=== PATIENT | female | born 1995 | race Caucasian/White ===

== ENCOUNTER 2022-12-16 13:22 | Emergency (ER) | payer OTHER, SELFPAY ==
[2022-12-16 13:36] VITALS: BP 122/73; PULSE 66; RESP 16; TEMP 36.6; O2SAT 100
--- NOTE | 2022-12-16 13:47 | ED.FEMALEGU ---
HPI - Female Genitourinary General Chief complaint: Urogenital-Female Stated complaint: uti symptoms Time Seen by Provider: 12/16/22 13:47 Source: patient Mode of arrival: ambulatory Limitations: no limitations History of Present Illness HPI Narrative: 27-year-old female presents with complaint of urinary frequency, dysuria for 2-3 days. Afebrile. Denies hematuria. Denies history of frequent UTIs. No concern for STI. All systems reviewed and negative except as noted above. Related Data Allergies Allergy/AdvReac Type Severity Reaction Status Date / Time No Known Allergies Allergy Verified 12/16/22 13:41 Review of Systems Review of Systems: CONSTITUTIONAL: Denies fever, chills, or sweats. EYES: Denies visual changes, redness, or discharge. ENT: Denies rhinorrhea, congestion, sore throat, or otalgia. CARDIOVASCULAR: Denies chest pain, palpitations, or edema. RESPIRATORY: Denies cough or dyspnea. GASTROINTESTINAL: Denies abdominal pain, nausea, vomiting, or diarrhea. GENITOURINARY: Reports dysuria frequency. Denies hematuria. SKIN: Denies rash or itching. MUSCULOSKELETAL: Denies back pain, joint pain, or myalgia. NEUROLOGIC: Denies headache, numbness, or weakness. PSYCHIATRIC: Denies anxiety or depression. All other systems reviewed are negative, except as documented in HPI. PMFSH Comments At time of signature, agree with nursing past medical, surgical, social and family history. There is no relevant family history pertinent to the presenting complaint. Exam Narrative: GENERAL: This is a well-nourished, well-developed patient, in no apparent distress. HEAD: normocephalic, atraumatic. EYES: PERRL. Sclera clear/white. Vision is grossly intact. EARS: External ears normal NOSE: External nose normal NECK: Neck supple, non-tender without lymphadenopathy, masses or thyromegaly. CARDIOVASCULAR: Regular rate and rhythm without murmurs, gallops, or rubs. RESPIRATORY: Clear to auscultation. Breath sounds equal bilaterally. No wheezes, rales, or rhonchi. SKIN: warm, Dry, intact with no suspicious lesions or rash, good texture and turgor. NEURO: awake, alert, and oriented to person, place and time. There were no obvious focal neurologic abnormalities. EXTREMITIES: No joint tenderness, effusion, or edema noted. Course Course Level of Care: Express Care Visit Vital Signs Vital signs: Vital Signs Temperature 36.6 C 12/16/22 13:36 Pulse Rate 66 12/16/22 13:36 Respiratory Rate 16 12/16/22 13:36 Blood Pressure 122/73 12/16/22 13:36 Pulse Oximetry 100 12/16/22 13:36 Oxygen Delivery Room Air 12/16/22 13:36 Temperature 36.6 C 12/16/22 13:36 Pulse Rate 66 12/16/22 13:36 Respiratory Rate 16 12/16/22 13:36 Blood Pressure 122/73 12/16/22 13:36 Pulse Oximetry 100 12/16/22 13:36 Oxygen Delivery Room Air 12/16/22 13:36 reviewed MDM - Female Genitourinary MDM Narrative Medical decision making narrative: Patient is aware of diagnosis, understands and agrees to treatment plan. Anticipatory guidance given. Patient agrees to follow-up as directed and is aware of reasons to seek care at the emergency department. Portions of this record may have been created with voice recognition software Differential Diagnosis Differential diagnosis: Likely urinary tract infection Lab Data Labs: Urine Glucose Negative Reference Range: Negative Urine Bilirubin Negative Reference Range: Negative Urine Ketone Negative Reference Range: Negative Urine Specific [place] 1.020 Reference Range:1.001-1.035 Urine Blood Trace Reference Ra
== END 2022-12-16 13:57 | disposition home or self-care (01) ==
PROVIDERS: Emergency Provider Nurse Practitioner Family
DX: N39.0 Urinary tract infection, site not specified (principal)
CPT/HCPCS: 81003; 87086; 99203; G0463

== ENCOUNTER 2023-03-13 08:18 | Emergency (ER) | payer OTHER, SELFPAY ==
[2023-03-13 08:27] VITALS: BP 117/62; PULSE 84; RESP 18; TEMP 36.4; O2SAT 99
--- NOTE | 2023-03-13 09:06 | ED.FEMALEGU ---
HPI - Female Genitourinary General Chief complaint: Urogenital-Female Stated complaint: Female Urogenital Source: patient Mode of arrival: ambulatory Limitations: no limitations History of Present Illness HPI Narrative: Old female presents to [facility] with complaints of urinary urgency, burning and frequency since yesterday. Patient reports that she last had a urinary tract infection in December and was treated here with Bactrim. Patient denies vaginal discharge, vaginal bleeding, concern for STDs, fever, body aches, chills, abdominal pain, back pain, nausea, vomiting or diarrhea. Patient has not tried taking any srav-xvb-bbmxcnb medications for her symptoms. MD elicited complaint: dysuria and UTI Onset (ago): day(s) (1) Vaginal discharge: none Vaginal bleeding: none Urinary symptoms: Dysuria, Urgency and Frequency Exacerbating factors: none Relieving factors: none Patient : No Related Data Allergies Allergy/AdvReac Type Severity Reaction Status Date / Time No Known Allergies Allergy Verified 12/16/22 13:41 Review of Systems Constitutional: Constitutional: Denies chills and Denies fatigue ENT: Denies vertigo and Denies dizziness Cardiovascular: Cardiovascular: Denies chest pain Respiratory: Respiratory: Denies cough, Denies dyspnea and Denies wheezing Gastrointestinal: Gastrointestinal: Denies diarrhea, Denies nausea and Denies vomiting Genitourinary: Genitourinary: Denies hematuria, Reports nocturia, Denies genital lesions and Reports dysuria Integumentary/Breasts: Skin/Breast: Denies rash Neurologic: Denies dizziness, Denies syncope and Denies headache(s) PMFSH Comments At time of signature, I agree with nursing past medical, surgical, social and family history. There is no relevant family history pertinent to the presenting complaint. Exam Const: General: healthy appearing and no acute distress Nutritional Appearance: well nourished Orientation/consciousness: patient oriented x3 Limitations: no limitations HENMT: Head: normal to inspection Eyes: Conjunctivae: conjunctivae normal Neck: Neck: normal visual inspection Resp: Effort & Inspection: normal respiratory effort and not labored Auscultation: clear to auscultation bilaterally, no crackles, no rales, no rhonchi and no wheezes Cardio: Rate: regular rate Rhythm: regular rhythm Heart sounds: no murmurs GI: Inspection: non-distended GI Palp: Yes Soft to palpation, No Tenderness to palpation present (GI), No Guarding due to palpation present (GI), No Rigid due to palpation and No Hernia present : General: Yes bladder normal to palpation and Yes no CVA tenderness Back/Spine/Pelvis: Back: no CVA tenderness Skin: General skin exam: normal color Rashes: no rashes Wounds: no wounds Neuro: Speech: normal speech Gait exam (Neuro): Normal gait present Psych: Affect: normal affect Attitude: cooperative Course Course Level of Care: Express Care Visit Vital Signs Vital signs: Vital Signs Temperature 36.4 C L 03/13/23 08:27 Pulse Rate 84 03/13/23 08:27 Respiratory Rate 18 03/13/23 08:27 Blood Pressure 117/62 03/13/23 08:27 Pulse Oximetry 99 03/13/23 08:27 Oxygen Delivery Room Air 03/13/23 08:27 Temperature 36.4 C L 03/13/23 08:27 Pulse Rate 84 03/13/23 08:27 Respiratory Rate 18 03/13/23 08:27 Blood Pressure 117/62 03/13/23 08:27 Pulse Oximetry 99 03/13/23 08:27 Oxygen Delivery Room Air 03/13/23 08:27 MDM - Female Genitourinary MDM Narrative Medical decision making narrative: Urinalysis results discussed with patient. Urine culture obtained and sent to lab. Patient understands that we will call her if antibiotic changes needed. Patient agrees to follow-up with primary care provider if her symptoms do not improve and to proceed to the emergency room if symptoms worsen Differential Diagnosis Differential diagnosis: Likely bacterial vaginosis and cervicitis Critical Care Time
== END 2023-03-13 09:14 | disposition home or self-care (01) ==
PROVIDERS: Emergency Provider Nurse Practitioner Family
DX: N30.00 Acute cystitis without hematuria (principal)
CPT/HCPCS: 81003; 87077; 87086; 87186; 99213; G0463

== ENCOUNTER 2023-08-08 08:30 | Emergency (ER) | payer OTHER, SELFPAY ==
[2023-08-08 09:03] VITALS: BP 120/63; PULSE 88; RESP 18; TEMP 36.1; O2SAT 98
--- NOTE | 2023-08-08 09:14 | ED.URI ---
HPI - URI/Sore Throat General Chief Complaint: Upper Respiratory Infection Stated Complaint: sorethroat,congestion Time Seen by Provider: 08/08/23 09:14 Source: patient, RN notes reviewed and old records reviewed Mode of arrival: ambulatory Limitations: no limitations History of Present Illness HPI Narrative: 28-year-old female presents to the [facility] with complaints of congestion and a sore throat since Monday, 4 days Has taken Mucinex Denies fevers, abdominal pain, chest pain, shortness of. Treatments prior to arrival: cold medicine (Mucinex) Related Data Home Medications Medication Instructions Recorded Confirmed ergocalciferol (vitamin D2) 1,250 1,250 mcg PO WEEKLY 08/08/23 08/08/23 mcg (50,000 unit) capsule letrozole 2.5 mg tablet 2.5 mg PO PRN PRN fertility 08/08/23 08/08/23 levothyroxine 50 mcg tablet 50 mcg PO DAILY 08/08/23 08/08/23 Allergies Allergy/AdvReac Type Severity Reaction Status Date / Time No Known Allergies Allergy Verified 08/08/23 09:01 Review of Systems Review of Systems: All systems reviewed & are unremarkable except as noted in HPI and below Constitutional: Constitutional: Reports no additional constitutional complaints Eyes: Eyes: Reports no additional eye complaints ENT: Reports as per HPI Cardiovascular: Cardiovascular: Reports no additional cardiovascular complaints, Denies chest pain and Denies dyspnea Respiratory: Respiratory: Reports no additional respiratory complaints, Denies chest congestion, Denies cough and Denies dyspnea Gastrointestinal: Gastrointestinal: Reports no additional gastrointestinal complaints, Denies abdominal pain, Denies nausea and Denies vomiting Musculoskeletal: Musculoskeletal: Reports no additional musculoskeletal complaints Integumentary/Breasts: Skin/Breast: Reports system reviewed and no additional complaints, except as docu Neurologic: Reports system reviewed and no additional complaints, except as documented Psychiatric: Psychiatric: Reports no additional psychiatric complaints Allergic/Immunologic: Allergic/Immunologic: Reports no additional allergic/immunologic complaints PMFSH Past Medical History Medical History Ganglion cyst of dorsum of left wrist Social History Social History Smoking status: Never smoker Alcohol intake: current Alcohol use details: occasionally Substance use: never Comments At the time of my signature, I reviewed and agree with the nursing past medical, surgical, social, and family history. There is no relevant family history pertinent to the patient complaint. Exam Const: General: cooperative, healthy appearing, comfortable, no acute distress, well developed, alert and well nourished Nutritional Appearance: well nourished Orientation/consciousness: patient oriented x3 Limitations: no limitations HENMT: Head: normal to inspection Ears: hearing grossly normal bilaterally, external ears normal, TM's normal bilaterally, EAC's normal, mastoids normal and no periauricular adenopathy Face/Nose/Sinus: Normal external nose present, Normal nares present, Normal nasal mucous membranes and turbinates present, normal facial exam and face symmetric Face and sinus: normal facial exam and face symmetric Mouth: Yes Normal oral and palatal mucosa present, Yes lip normal and Yes moist mucous membranes Throat: uvula midline, abnormal tonsil bilateral erythema; no exudates and no hypertrophy, posterior oropharynx abnormal erythema; no cobblstoning, no edema, no exudates, no lacerations and no foreign body, postnasal drainage and no uvular edema Eyes: General: appearance normal, both eyes and all related structures Alignment and Position: alignment normal Periorbital: periorbital findings normal Pupils: Equal, round and reactive pupils present EOM: EOMs intact bilaterally Neck: Neck: normal visual inspect
== END 2023-08-08 09:29 | disposition home or self-care (01) ==
PROVIDERS: Emergency Provider Nurse Practitioner
DX: J06.9 Acute upper respiratory infection, unspecified (principal); Z79.899 Other long term (current) drug therapy; Z20.822 Contact with and (suspected) exposure to COVID-19
CPT/HCPCS: 87081; 87426; 87804; 87880; 99213; C9803; G0463

== ENCOUNTER 2023-11-07 11:35 | Outpatient (CLI) | payer OTHER, SELFPAY ==
--- NOTE | ~2023-11-07 | XR_ITS ---
EXAMINATION: XR hysterosalpingogram DATE: 11/07/2023 12:33 INDICATION: Infertility. TECHNIQUE: Fluoroscopy was performed by the radiologist during contrast infusion into the endometrial cavity of the uterus by the primary physician. Fluoroscopy exposure time was 0.3 minutes. The total number of images was 5. FINDINGS: The intrauterine cavity is normal in morphology. The fallopian tubes are normal. There is n ormal free intraperitoneal spillage of contrast on either side. IMPRESSION: 1. Normal hysterosalpingogram. Reviewed, dictated and finalized at location A.
--- NOTE | 2023-11-07 12:36 | W.PM.PROC2 ---
Procedure Note - Detailed Date of Procedure 11/07/23 Pre-op Diagnosis INFERTILITY Post-op Diagnosis Same Procedure Performed Hysterosalpingogram Surgeon Penelope Mathur MD Anesthesia None Indications unexplained infertility Findings normal hysterosalpingogram Description of Procedure the patient was placed on the fluoroscopy table. A speculum was placed in the vagina. Cervix was grasped with a tenaculum. The catheter was placed the uterine cavity and the bulb was inflated. The speculum was removed with the angiocath still placed in the intrauterine cavity. Dye was then removed. The catheter. Fluoroscopic images obtained this process. Patient experienced some moderate to severe discomfort. The balloon of the catheter was deflated and the catheter was removed while the images were being obtained. The procedure was terminated. Patient tolerated the procedure well. There were no complications. Estimated Blood Loss 0 Complications No immediate complications Condition Stable Disposition Other
== END 2023-11-07 11:36 | disposition home or self-care (01) ==
LOC: ANHIMG 11:36
PROVIDERS: Visit Provider Advanced Practice Midwife
DX: Z31.9 Encounter for procreative management, unspecified (principal)
CPT/HCPCS: 58340; 74740; Q9966

== ENCOUNTER 2023-11-28 09:02 | Emergency (ER) | payer OTHER, SELFPAY ==
[2023-11-28 09:25] VITALS: BP 88/47; PULSE 97; RESP 16; TEMP 36.3; O2SAT 100
--- NOTE | 2023-11-28 09:44 | ED.GENADULT ---
HPI - General Adult General Chief complaint: Upper Respiratory Infection Stated complaint: sorethroat,bilateral ear pain Source: patient Mode of arrival: ambulatory Limitations: no limitations History of Present Illness HPI narrative: Patient presents for evaluation of sick symptoms for last 3 days. Symptoms include hot flashes, chills, right sided ear discomfort, postnasal drainage, sore throat, cough, nausea. No objective fever, vomiting or diarrhea. She was recently on a cruise and states a woman on her flight was coughing. She is not aware of any other specific sick contacts. She has tried some OTC cough medication for her symptoms. Related Data Home Medications Medication Instructions Recorded Confirmed ergocalciferol (vitamin D2) 1,250 1,250 mcg PO WEEKLY 08/08/23 11/28/23 mcg (50,000 unit) capsule letrozole 2.5 mg tablet 2.5 mg PO PRN PRN fertility 08/08/23 11/28/23 levothyroxine 50 mcg tablet 50 mcg PO DAILY 08/08/23 11/28/23 chorionic gonadotropin, human 10,000 unit IM MONTHLY 11/28/23 11/28/23 10,000 unit IM powder for solution (Pregnyl) Allergies Allergy/AdvReac Type Severity Reaction Status Date / Time No Known Allergies Allergy Verified 11/28/23 09:09 Review of Systems Review of Systems: CONSTITUTIONAL: Reports hot flashes and chills. Denies objective fever EYES: Denies visual changes, redness, or discharge. ENT: Reports post-nasal drainage, sore throat and right sided otalgia CARDIOVASCULAR: Denies chest pain, palpitations, or edema. RESPIRATORY: Reports cough. Denies SOB. GASTROINTESTINAL: Reports nausea. Denies abdominal pain, vomiting, or diarrhea. GENITOURINARY: Denies dysuria or hematuria. SKIN: Denies rash or itching. MUSCULOSKELETAL: Denies back pain, joint pain, or myalgia. NEUROLOGIC: Denies headache, numbness, dizziness, or weakness. PSYCHIATRIC: Denies anxiety or depression. [facility] Past Medical History Medical History Ganglion cyst of dorsum of left wrist Surgical History Surgical History History of removal of cyst Family History Family History Mother Family history non-contributory Social History Social History Smoking status: Never smoker Alcohol intake: current Alcohol use details: occasionally Substance use: never Living arrangements: with family Gender identity (if verbalized by the patient): Female Exam Narrative: GENERAL: Well-appearing, well-nourished, and in no acute distress. HEAD: Normocephalic, atraumatic. EYES: PERRLA and EOMI. ENT: Nares clear, no rhinorrhea or epistaxis. Mucous membranes moist. Oropharynx without tonsillar hypertrophy exudate or other lesions. Bilateral TMs pearly winn nonbulging NECK: Supple. No adenopathy or masses. No carotid bruits or JVD CHEST: Clear to auscultation. No respiratory distress. No wheezes rales or rhonchi HEART: Regular rate and rhythm. No murmur heard. Normal peripheral pulses. ABDOMEN: Soft, nontender, nondistended, normal active bowel sounds. EXTREMITIES: Normal range of motion. No edema. SKIN: Warm, dry, no rash. NEURO: No focal deficits. Alert and oriented x3. PSYCH: Normal mood and affect. Course Course Emergency Course: This is a 28-year-old female who presented for evaluation of sick symptoms. Strep and influenza negative. COVID positive. Ukdm-aen-rlpewdx agents for symptom management. Increase hydration. Follow up with primary provider. BP improved on reassessment. Go to the ER for worsening symptoms. Pt in agreement with plan of care. Level of Care: Express Care Visit Vital Signs Vital signs: Vital Signs Temperature 36.3 C L 11/28/23 09:25 Pulse Rate 97 11/28/23 09:25 Respiratory Rate 16 11/28/23 09:25 Bl
[2023-11-28 09:56] VITALS: BP 117/77
== END 2023-11-28 09:58 | disposition home or self-care (01) ==
PROVIDERS: Emergency Provider Nurse Practitioner
DX: U07.1 COVID-19 (principal)
CPT/HCPCS: 87081; 87426; 87804; 87880; 99213; G0463

== ENCOUNTER 2024-07-18 11:45 | Emergency (ER) | payer OTHER, SELFPAY ==
--- OUTSIDE RECORDS SUMMARY | 2024-07-18 11:48 | XMS_ITS ---
Author Organization 1 OF Eloy logan DPM [facility] Address [address] [place] [address] Care Team Providers Care Manager Fine Dining Name Role Phone UNKNOWN, UNKNOWN Primary Care Provider Unavailab Victorino Orozco Unavailable [phone] REASON FOR VISIT LT foot great toe ingrown toenail Encounters Encounter Location Date Provider Diagnosis 1 OF Eloy Cabral DPM [facility] [address] [place] [address] 02/21/2023 Victorino Sanders Plan Of Treatment No Information Progress Notes * Uzma KHANNADOB: [birth year] (29 yo F)Acc No.[id number]:02/21/2023 Progress Notes Patient:?Uzma KHANNA Provider:?Victorino Sanders DPM :1995???Age:27 Y???Sex:Female D ate:02/21/2023 Address:[address], [facility] Pcp:UNKNOWN UNKNOWN Subjective: * Chief Complaints: * ???1. LT foot great toe ingr own toenail. * Medical History:? Objective: * Vitals:? Assessment: Plan: * Treatment: * Images: * Electronic signature of Victorino Sanders DPM on 07/18/2024 at 11:48 AM PRODUCT DEVELOPER Sign off status: Pending * Provider:?Victorino Sanders DPM Date:?02/04 Generated for Printi ng/Faxing/eTransmitting on:?07/18/2024 11:48 AM PRODUCT DEVELOPER
--- OUTSIDE RECORDS SUMMARY | 2024-07-18 11:49 | XMS_ITS | Continuity of Care Document ---
Author Organization [facility] [address] Address [address] [place] [phone] Encounter [facility] CHERYLESIDNEYR [id number] Date(s): 06/20/22 - 06/20/22 [facility] [address] [phone] [place] Discharge Disposition: Home or Self Care Attending Physician: CARLOS Vaughn Katie Referring Physician: CARLOS Vaughn Katie Medications miSOPROStol 200 mcg oral tablet Start: 06/22/22 17:23:00 EST, 4 tab, vaginal, ONCE, Disp# 4 tab, Refills: 0, Pharmacy: [id number] Start Date: 06/22/22 Status: Ordered Motrin 800 mg oral tablet Start: 06/22/22 17:26:00 EST, 1 tab, PO, tid, Disp# 15 tab, Refills: 1, PRN: as needed for pain, Pharmacy: [id number] Start Date: 06/22/22 Status: Ordered Tylenol 500 mg oral tablet Start: 06/22/22 17:25:00 EST, 2 tab, PO, q8h, Disp# 24 tab, Refills: 1, PRN: as needed for pain, Pharmacy: [id number] Start Date: 06/22/22 Status: Ordered Zofran 8 mg oral tablet Start: 06/22/22 17:26:00 EST, 1 tab, PO, bid, Disp# 12 tab, PRN: as needed for nausea/vomiting, Pharmacy: [id number] Start Date: 06/22/22 Status: Ordered Results Radiology Reports * Exam Date Time Procedure Performing Provider Status 06/20/22 8:49 AM US OB Transvaginal Selma Purvis; Modified Notes: (US OB Transvaginal) Reason For Exam: follow up on viability US OB Transvaginal ADDENDUM BEGINS The above results were telephoned to Marciavern MALONE by our reading room staff at 936 this morning Workstation ID: [id number] ADDENDUM ENDS Final Dictated by:MD Edge Joachim J Dictated DT/TM:06/20/2022 9:42 Signed by:MD Edge Joachim J Signed (Electronic Signature):06/20/2022 9:42 a US OB Transvaginal EXAMINATION: US OB Transvaginal CLINICAL HISTORY: 26-year-old female for dating and viability. Follow-up. COMPARISON: Prior early file sonogram 06/03/2022 TECHNIQUE: Transvaginal pelvic sonography was performed using standard protocol. FINDINGS: LMP: 04/09/2022. Gestational age by LMP: 10 weeks 2 days. JAS by LMP: 01/14/2023. Gestational age based on first sonogram: 8 weeks 3 days +/- 5 days. JAS by first ultrasound: 01/27/2023. Uterus measures 8.2 x 5.9 x 6.4 cm and is retroverted in position. Intrauterine gestational sac is noted with pole identified with crown lump length of 3.1 mm suggesting menstrual age of 5 weeks and 6 days. No cardiac activity is noted and there is been no interval growth since previous study. Findings are consistent with intrauterine demise. The right and left ovaries are normal in size measuring 2.2 x 2.1 x 1.5 cm on the right for volume of 3.5 cc and 3.0 x 2.3 x 2.1 cm a left for volume of 7.9 cc. There is a probable left ovarian corpus luteum. No adnexal masses or cul-de-sac free fluid is observed. There is probable 6 mm subchorionic bleed along the margin of the gestational sac. I discussed the above findings of demise with Ms Khanna and her while they was in our department. IMPRESSION: 1. Intrauterine demise at 5 weeks and 6 days. Workstation ID: [id number] Final Dictated by:MD Edge Joachim J Dictated DT/TM:06/20/2022 9:12 Signed by:MD Edge Joachim J Signed (Electronic Signature):06/20/2022 9:11 a US transvaginal for * MD Edge Joachim J: VERIFY MD Edge Joachim J: VERIFY, COSIGN MD Edge Joachim J: COSIGN, MODIFY MD Edge Joachim J: MODIFY Event Display: Addendum Report Authored Date: ADDENDUM BEGINS The above results were telephoned to Marcia MALONE by our reading room staff at 936 this morning Workstation ID: [id number] ADDENDUM ENDS Final Dictated by:MD Edge Joachim J Dictated DT/TM:06/20/2022 9:42 Signed by:MD Edge Joachim J Signed (Electronic Signature):06/20/2022 9:42 a Note * MD Edge Joachim J: VERIFY, VERIFY MD Edge Joachim J: VERIFY Contributor_system, [id number]: PERFORM Event Display: Report Authored Date: EXAMINATION: US OB Transvaginal CLINICAL HISTORY: 26-year-old female for dating and viability. Follow-up. COMPARISON: Prior early file sonogram 06/03/2022 TECHNIQUE: Transvaginal pelvic sonography was performed using standard protocol. FINDINGS: LMP: 04/09/2022. Gestational age by LMP: 10 weeks 2 days. JAS by LMP: 01/14/2023. Gestational age based on first sonogram: 8 weeks 3 days +/- 5 days. JAS by first ultrasound: 01/27/2023. Uterus measures 8.2 x 5.9 x 6.4 cm and is retroverted in position. Intrauterine gestational sac is noted with pole identified with crown lump length of 3.1 mm suggesting menstrual age of 5 weeks and 6 days. No cardiac activity is noted and there is been no interval growth since previous study. Findings are consistent with intrauterine demise. The right and left ovaries are normal in size measuring 2.2 x 2.1 x 1.5 cm on the right for volume of 3.5 cc and 3.0 x 2.3 x 2.1 cm a left for volume of 7.9 cc. There is a probable left ovarian corpus luteum. No adnexal masses or cul-de-sac free fluid is observed. There is probable 6 mm subchorionic bleed along the margin of the gestational sac. I discussed the above findings of demise with Ms Khanna and her while they was in our department. IMPRESSION: 1. Intrauterine demise at 5 weeks and 6 days. Workstation ID: [id number] Final Dictated by:MD Edge Joachim J Dictated DT/TM:06/20/2022 9:12 Signed by:MD Edge Joachim J Signed (Electronic Signature):06/20/2022 9:11 a
--- OUTSIDE RECORDS SUMMARY | 2024-07-18 11:49 | XMS_ITS | Continuity of Care Document ---
Author Organization [facility] Address [address] [place] [address] Assessment Encounter Date Assessment Date Assessment LastModified by Organization Details LastModified Time 07/03/2024 07/03/2024 Patient is _34__weeks . Discussed plan. Not available 07/03/2024 10:12:00 Plan of Treatment Reminders Order Date Submit Date Provider Last Modified By Organization Details Last Modified Time Details Appointments None record ed. Lab None record ed. Referral None record ed. Procedures None record ed. Surgeries None record ed. Imaging None record ed. Medication Orders None record ed. Patient TargetsNo targets recorded. Patient InstructionsNo instructions recorded. Reason for Referral None Reported. Results Created Date Observation Date Name Description Value Unit Range Abnormal Flag Note LastModifiedBy Organization Detail LastModifiedTime 01/31/20 24 01/31/2024 US, obste tric, follo w-up No observ ation record ed. cammie Lindasy [address], [facility], [place], [address], 01/31/2024 12:59:11 02/01/20 24 02/01/2024 US, obste tric, follo w-up No observ ation record ed. [email or web address] [facility] [address] [place] [address] Krystyna Winslow [facility], [place], [address], 02/01/2024 16:12:06 02/01/20 24 02/01/2024 US, obste tric, follo w-up No observ ation record ed. [email or web address] Not Available 01/31 16:21:10 04/18/20 24 04/18/2024 US, obste tric, follo w-up No observ ation record ed. [facility] [address] [place], [address], 04/18/2024 13:46:37 04/18/20 24 04/18/2024 US, obste tric, follo w-up No observ ation record ed. [facility] [address] [place], [address], 04/18/2024 13:50:23 05/02/20 24 05/02/2024 US, obste tric, follo w-up No observ ation record ed. [facility] [address] [facility] [address], [place], [address], 05/02/2024 12:29:59 05/02/20 24 05/02/2024 US, obste tric, follo w-up No observ ation record ed. [email or web address] [facility] [address] [place], [address], 05/02/2024 15:11:09 05/16/20 24 05/16/2024 US, obste tric, follo w-up No observ ation record ed. [id number] [place], [address], 05/17/2024 14:19:03 05/16/20 24 05/16/2024 US, obste tric, follo w-up No observ ation record ed. [email or web address] [facility] [address], [address], 05/16/2024 14:58:04 05/31/20 24 05/31/2024 US, obste tric, follo w-up No observ ation record ed. [email or web address] [facility] [address] [facility] [address], [place], [address], 05/31/2024 13:32:19 05/31/2005/31/2024 US, obste tric, follo w-up No observ ation record ed. [email or web address] [facility] [address] [place], [address], 06/05/2024 12:01:28 Result Notes None recorded. Problems Name Problem SNOMED Code Status Onset Date Resolution Date Notes Provider Name and Address Organization Details Recorded Time 22441151 Active 2023 Julianna sanchez, [facility] 4 10:18:05 Artificia l inseminat ion Active done by SP Hiwot Hendrix CNM [address], [place], [address], [facility] 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 4 15:14:03 Amelie thyroidit is 12691323 Active on levothyro xine for infertilt y Hiwot Hendrix CNM [address], [place], [address], [facility] 4 15:14:03 Anemia 809378216 Active Mayra sanchez, [facility] 4 10:34:46 Problem Notes None recorded. Procedures Surgical History Date Name Laterality Status Provider Name and Address Organization Details Recorded Time 2023 intrauterine artificial insemination completed Julianna Fay [facility] 11/15/2023 09:25:10 2023 hysterosalpingography completed Julianna Fay [facility] 01/31/2024 10:15:23 2022 Date of Last Pap Smear completed Julianna Fay [facility] 06/28/2023 09:35:11 2009 procedure on wrist completed Julianna Fay [facility] 03/29/2023 16:11:52 Imaging Results None recorded. Procedure Notes None recorded. Medical Equipment None Reported. Allergies No known drug allergies Medications Name Sig Start Date Stop Date Status Note LastModified by Organization Details LastModified Time ibuprofen 800 mg tablet TAKE 1 TABLET BY MOUTH 3 TIMES A DAY NEEDED FOR PAIN 05/03 completed Not Available Not Available Not Available ondansetr on HCl 8 mg tablet 1 TAB BY MOUTH TWICE DAILY NEEDED FOR NAUSEA/V OMITING 05/03 completed Not Available Not Available Not Available phenazopy ridine 200 mg tablet TAKE 1 TABLET BY MOUTH THREE TIMES DAILY 06/28 completed Not Available Not Available Not Available Pregnyl 10,000 unit intramusc ular solution Inject 1 unit by intramus cular route. 01/04 completed /Late Entry Patient was given pregnyl injectio n 11/14/2023 in right hip lot [id number] Exp 06/25/20 24 Not Available Not Available Not Available sulfameth oxazole 800 mg-trimet hoprim 160 mg tablet TAKE 1 TABLET BY MOUTH TWICE DAILY FOR 7 DAYS 06/28 completed Not Available Not Available Not Available acetamino phen 500 mg tablet TAKE 2 TABLETS BY MOUTH EVERY 8 HOURS NEEDED FOR PAIN 05/03 completed Not Available Not Available Not Available levothyro xine 25 mcg tablet TAKE 1 TABLET BY MOUTH EVERY DAY 06/28 completed Not Available Not Available Not Available phenazopy ridine 100 mg tablet TAKE 1 TABLET BY MOUTH THREE TIMES DAILY NEEDED FOR PAIN 05/03 completed Not Available Not Available Not Available levothyro xine 50 mcg tablet TAKE 1 TABLET BY MOUTH EVERY DAY 04/24 completed Not Available Not Available Not Available cephalexi n 500 mg capsule 05/03 completed Not Available Not Available Not Available pantopraz ole 40 mg tablet,de layed release TAKE 1 TABLET BY MOUTH EVERY DAY active Not Available Not Available No t Available misoprost ol 200 mcg tablet 4 TAB VAGINAL ONCE 05/03 completed Not Available Not Available Not Available ergocalci ferol (vitamin D2) 1,250 mcg (50,000 unit) capsule TAKE 1 CAPSULE BY MOUTH EVERY WEEK 10/04 completed Not Available Not Available Not Available letrozole 2.5 mg tablet TAKE 3 TABLETS BY MOUTH EVERY DAY ON DAYS 3 THOUGH 7 OF CYCLE 01/04 completed Not Available Not Available Not Available methylpre dnisolone 4 mg tablets in a dose pack FOLLOW PACKAGE DIRECTIO NS 10/04 completed Not Available Not Available Not Available ondansetr on 4 mg disintegr ating tablet Place 1 tablet every 8 hours by translin gual route. active Not Available Not Available No t Available Vitamin D3 25 mcg (1,000 unit) capsule TAKE 1 TABLET IN THE MORNING AND 1 TABLET BEFORE BEDTIME 05/03 completed Not Available Not Available Not Available nitrofura ntoin monohydra te/macroc rystals 100 mg capsule TAKE 1 CAPSULE BY MOUTH EVERY DAY WITH INTERCOU RSE 10/04 completed Not Available Not Available Not Available Vitamin D 05/03 completed Not Available Not Available Not Available Slow Release Iron 140 mg (45 mg iron) tablet,ex tended release Take by oral route. active Not Available Not Available No t Available Vitals Date Recorded Body height Body mass index (BMI) Body weight Systolic blood pressure Diastolic blood pressure Provider Name and Address Organization Details Last Updated DateTime 07/03/2024 157.48 cm 38.2 kg/m2 27041.81 g 123 mm[Hg] 84 mm[Hg] Julianna Fay [facility] 10:10:55 Social History Question Answer Notes LastModified by Organizat ion Details LastModified Time Tobacco Smoking Status Never Smoker Suni sanchez, [facility] 06/28/2023 09:26:18 What Is Your Level Of Alcohol Consumption? None [email or web address] Information not available 03/27/2024 If You Are , What Was Your Level Of Alcohol Consumption Prior To ? Occasional [email or web address] Information not available 03/27/2024 Are You Blind Or Do You Have Difficulty Seeing? No Information n ot available 03/29/2023 What Is Your Level Of Caffeine Consumption? Moderate [email or web address] Information not available 02/28/2024 In The 14 Days Before Symptom Onset, Have You Had Close Contact With A Laboratory-confirm ed COVID-19 While That Case Was Ill? No [email or web address] Information n ot available 03/29/2023 In The 14 Days Before Symptom Onset, Have You Had Close Contact With A Person Who Is Under Investigation For COVID-19 While That Person Was Ill? No [email or web address] Information not available 03/29/2023 Have You Been To An Area Known To Be High Risk For COVID-19? No [email or web address] Information not available 03/29/2023 Are You Deaf Or Do You Have Serious Difficulty Hearing? No Information not available 03/29/2023 What Type Of Diet Are You Following? REGULAR [email or web address] Information n ot available 03/29/2023 What Is The Highest Grade Or Level Of School You Have Completed Or The Highest Degree You Have Received? 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 No Information not available 02/28/2024 Have You Ever Been Counseled For Unhealthy Alcohol Use? No [email or web address] Information not available 06/28/2023 Do You Use Protection During Sex? No [email or web address] Information not available 01/05/2024 Do You Use Your Seat Belt Or Car Seat Routinely? Yes [email or web address] Information not available 03/29/2023 Do You Have Smoke And Carbon Monoxide Detectors In Your Home? Yes Information not available 03/29/2023 Do You Feel Stressed (tense, Restless, Nervous, Or Anxious, Or Unable To Sleep At Night)? [id number] Information not available 03/29/2023 Do You Use Any Illicit Or Recreational Drugs? No [email or web address] Information not available 03/29/2023 Do You Use Sunscreen Routinely? Yes [email or web address] Information not available 03/29/2023 Has Tobacco Cessation Counseling Been Provided? No [email or web address] Information not available 06/28/2023 Have You Used IV Drugs? No [email or web address] Information not available 02/28/2024 Do You Or Have You Ever Used Any Other Forms Of Tobacco Or Nicotine? No [email or web address] Information not available 06/28/2023 Sex: Unknown Functional Status Question Answer Note LastModified by Organizat ion Details LastModified Time Do you have difficulty walking or climbing stairs? No [email or web address] Information not available 06/28/2023 Are you able to walk? YESWOREST [email or web address] Information not available 03/29/2023 Are you able to care for yourself? Yes Information not available 06/28/2023 Do you have difficulty dressing or bathing? No [email or web address] Information not available 06/28/2023 What is your exercise level? Occasional [email or web address] Information not available 03/29/2023 Mental Status None recorded. Family History Relationship Description Onset Age of this Age Resolved Age Notes LastModified by Organization Details LastModified Time Mother Asthma [email or web address] Not available 05/03/2023 11:35:16 Maternal Grandmother Diabetes mellitus [email or web address] Not available 05/03 11:35:16 Medical History Condition Response Allergies (Food, seasonal, environmental ) N Other N Breast Cancer N Drug/Latex Allergies/Reactions N Blood Transfusion N Dermatologic Disorders N Lung Disease N Defects or Inherited Disease N Breast Problem N Gestational Diabetes N Hematologic disorders N Anesthesia Complications N History of STI N Deep Vein Thrombosis N Polycystic ovary syndrome N Anxiety Disorder N Autoimmune disease N Arthritis N Infertility Y Polyps N Acid Reflux (GERD) N History of abnormal pap N Cancer N Stroke N Varicosities N Neurologic/Epilepsy N Endometriosis N High Cholesterol N Headaches N Fibromyalgia N Kidney Disease N Heart Problems N Kidney or Bladder Problems N Thyroid Problems Y GI Problems N Eating Disorder N Anemia N Art (IVF or FET) Y Psychiatric Illness N Ovarian Cancer N Diabetes N Pulmonary (TB, Asthma) N Hepatitis/Liver Disease N No Past Medical History N Eczema N Urinary Tract Infection N Abuse/Domestic Violence N Asthma N Trauma/Violence N Depression/ depression N Heart Disease N Pre-Eclampsia N Hypertension N Osteoporosis N Thrombophilias N Gynecological History Statement/Question Response Abnormal Pap N Date of Last Mammogram Date of LMP 11/02/2023 Was last menstrual period normal Y STIs/STDs N Duration of Flow (days) 4 Current Control Method Frequency of Cycle (Q days) 31 Sexually Active? Y Date of DEXA bone scan Age of first menstrual cycle 9 Date of Last Pap Smear 06/28/2023 Sexual Problems? N LMP Approximate Obstetrics History GPAL:G 2 P 0 0 1 0 Type Value Spontaneous 1 Living 0 Total 2 Past Encounters Encounter ID Performer Location Encounter Start Date Encounter Closed Date Diagnosis/Indication Diagnosis SNOMED-CT Code Diagnosis ICD10 Code [id number] Hiwot Hendrix [facility] [address],[place] [address] 06/05/2024 09:18:38 06/05/2024 09:48:56 Routine care 233808688 Z34.92 [id number] Hiwot Hendrix [facility] [address],[place] [address] 06/19/2024 09:40:08 06/19/2024 10:39:08 Gestation period, 32 weeks 1797268 Z3A.32 [id number] Hiwot Hendrix [facility] [address],[place] [address] 07/03/2024 09:57:40 07/03/2024 10:27:45 Gestation period, 34 weeks [id number] Z3A.34 Health Concerns Section Related Observation LastModified by Organization Detai ls LastModified Time None Recorded Concern Status LastModified by Organization Details LastModified Time None Recorded Payers Encounter Date Sequence Insurance Name Policy Number Policy Dale Covered Member ID Dale Member ID Guarantor Name 07/03/2024 1 [employer] - DOS PRIOR TO 2024 - [employer] - [employer] ( - PPO) Jin Watson [id number] Uzma Watson OBGyn Episode Ob Episode Information Episode Created Date Number of Fetuses Patient Bloodtype Patient rh Status Prepregnancy Weight lbs Domestic Partner Domestic Partner Phone Father Name Legend Maker Status 01/31/20 24 2 O Positive 186 Jin woodard OPEN Fetus Data First Name Last Name Admitted to NICU Weight (g) Sex Living Outcome Pediatric Complications Fetus ID Race Codes Race Delivery Type [id number] Problems Problem Notes Pt has f/u ultrasounds with Gabriela RICHARDSON on 02/22, 03/07, 03/20, 03/27. TTS BILL cox 05/31 , 06/14 & 06/27 NST 06/18, 06/21 & [email or web address] completed 1hr gtt failed, 3hr gtt passed. Problem Name Start Date End Date Resolution Snomed Code Not e Anemia 834091328 Amelie thyroiditis 04593096 on levothyroxine for infertilty Artificial insemination 19904317 done by SP Monochorionic diamniotic twin [id number] MFM on 01/31 Jas Calculation JAS Calculation Method Initial Jas Date Initial Exam Date Initial Exam Provider Initial Ultrasound Date Last Menstrual Period Date Ultra Sound Weeks Gestation Conception by IVF Embryo Age at Transfer Date of Transfer 08/08/1901/04/2001/04/2024 11/02/2023 9 Eighteen To Twenty Week Jas Update Ultra Sound Date Fundal Height At Umbil Quickening Date Ultra Sound Latest Weeks Gestation Final Jas Confirmed By Final Jas Confirmed Date Final Jas Date Ultra Sound Latest Days Gestation 01/31/20 24 12 [email or web address] 01/31/2024 08/08/19 25 6 Pre- Flowsheet Flowsheet Date 01/31/2024 Han Score Blood Edema Fundus Height Fundus Units Glucose Ketones Leukocytes Nitrite Labor Signs Protein Cervic Dilation Cervic Effacement Cervic Station none Type Weight in lbs Pre/Post Dialysis Refused Weight 186.823330561971 BP Diastolic BP Location Tested BP Systolic BP Type 77 126 Fetus Heart Rate Present Fetus Movement A No Comments Patient states that having s ome heartburn and nausea and vomiting. sees mfm tomorrow, will await ASA rec 81 or 162mg, zofran helping with nausea, reviewed rec, precautions, education, f/u here in 4 weeks Flowsheet Date 02/28/2024 Han Score Blood Edema Fundus Height Fundus Units Glucose Ketones Leukocytes Nitrite Labor Signs Protein Cervic Dilation Cervic Effacement Cervic Station none Type Weight in lbs Pre/Post Dialysis Refused Weight 191.250627349768 BP Diastolic BP Location Tested BP Systolic BP Type 77 123 Fetus Heart Rate Present Fetus Movement A No B No Comments Patient is having nausea, he artburn and vomiting. will rx protonix, US today, saw mfm both boys doing well! education and precautions Flowsheet Date 03/27/2024 Han Score Blood Edema Fundus Height Fundus Units Glucose Ketones Leukocytes Nitrite Labor Signs Protein Cervic Dilation Cervic Effacement Cervic Station none Type Weight in lbs Pre/Post Dialysis Refused 193.90112952744 BP Diastolic BP Location Tested BP Systolic BP Type 72 110 Fetus Heart Rate Present A 138 Present B 150 Present Fetus Movement A No Comments doing well +FM, discussed ta leave when she starts feeling poorly, sees mfm every 2 weeks currently. if needs would like to have it at [facility] because of proximity to NICU, would still like to co-manage care for now, f/u 4 weeks then 28 weeks GCT,. precautions and education, gerd resolved with protonix Flowsheet Date 04/24/2024 Han Score Blood Edema Fundus Height Fundus Units Glucose Ketones Leukocytes Nitrite Labor Signs Protein Cervic Dilation Cervic Effacement Cervic Station trace Type Weight in lbs Pre/Post Dialysis Refused 201.413017210629 BP Diastolic BP Location Tested BP Systolic BP Type 75 137 Fetus Heart Rate Present Fetus Movement A Yes B Yes Comments Patient states that is havin g some back pain, hip pain, swelling and nausea. ok for disability placard, ok for maternity belt, planning c/s at [facility] at 37 weeeks, plan 4 week GCT here, education and precautions. +FM x 2 Flowsheet Date 05/22/2024 Han Score Blood Edema Fundus Height Fundus Units Glucose Ketones Leukocytes Nitrite Labor Signs Protein Cervic Dilation Cervic Effacement Cervic Station none Type Weight in lbs Pre/Post Dialysis Refused 206.380210484580 BP Diastolic BP Location Tested BP Systolic BP Type 67 124 Fetus Heart Rate Present A 145 B 138 Present Fetus Movement A Yes B Yes Comments Patient is having pelvic clarissa n, discharge, nausea and vomiting. doing well 37 week c/s at [facility] scheduled 07/18 +FM x2 precautions and education discuss rsv at next visit f/u 2 weeks Flowsheet Date 06/05/2024 Han Score Blood Edema Fundus Height Fundus Units Glucose Ketones Leukocytes Nitrite Labor Signs Protein Cervic Dilation Cervic Effacement Cervic Station none Type Weight in lbs Pre/Post Dialysis Refused 206.162131406896 BP Diastolic BP Location Tested BP Systolic BP Type 97 140 88 138 Fetus Heart Rate Present A 147 B 156 Fetus Movement A Yes B Yes Comments doing well +FM, discussed c/ s vs vaginal, baby b breech, will discuss with [facility] education and precautions Flowsheet Date 06/19/2024 Han Score Blood Edema Fundus Height Fundus Units Glucose Ketones Leukocytes Nitrite Labor Signs Protein Cervic Dilation Cervic Effacement Cervic Station Type Weight in lbs Pre/Post Dialysis Refused Weight 210.091700865657 BP Diastolic BP Location Tested BP Systolic BP Type 80 128 Fetus Heart Rate Present A 146 B 150 Fetus Movement A Yes B Yes Comments Patient states that is havin g pressure and nausea. +FM NST yesterday at [facility] precautions and education f/u 2 weeks Flowsheet Date 07/03/2024 Han Score Blood Edema Fundus Height Fundus Units Glucose Ketones Leukocytes Nitrite Labor Signs Protein Cervic Dilation Cervic Effacement Cervic Station Type Weight in lbs Pre/Post Dialysis Refused Weight 209.914523935341 BP Diastolic BP Location Tested BP Systolic BP Type 84 123 Fetus Heart Rate Present Fetus Movement A Yes B Yes Comments Patient is having nausea and vomiting. Menstrual History Last Menstrual Date Menses Monthly On Bcp Conception Prior Menses Frequency Hcg Plus Date Menarche Onset Age 0311/02/2023 Genetic Screening And Infection History Question Response Note Mental Retardation/Autism false Patient's Age Will Be 35 Yea rs Or Older At Estimated Date of Delivery false Thalassemia (Macedonian, Syriac, Mediterranean, Or Background): MCV < 80 false Neural Tube Defect (Meningom yelocele, Spina Bifida, Or Anencephaly) false Congenital Heart Defect false Down Syndrome false Lincoln-Sachs (eg, Alevism, Cajun, Croatian-Finnish) f alse Jonny Disease false Sickle Cell Disease Or Trait () false Hemophilia Or Other Blood Disorders false Muscular Dystrophy false Cystic Fibrosis false [place]'s Chorea false Intellectual Disability/Autism false If Yes, Was Person Tested For Fragile X? false Other Inherited Genetic Or Chromosomal Disorder false Maternal Metabolic Disorder (eg, Type 1 Diabetes, PKU) false Patient Or Baby's Father Had A Child With Defects Not Listed Above false Recurrent Loss, Or A Stillbirth false Medications (including Suppl ements, Vitamins, Herbs, OTC Drugs), Illicit/Recreational Drugs, Alcohol false pnv , levothyroxine, zofran If Yes, Agent(s) And Strength/Dosage false Any Other Genetic History false Live With Someone With TB Or Exposed To TB false Patient Or Partner Has History Of Genital Herpes false Rash Or Viral Illness Since Last Menstrual Period false History Of STD, Gonorrhea, C hlamydia, HPV, Syphilis false Other Infection History false History of HIV false History of Hepatitis false Prior GBS-infected child false Hemoglobinopathy Or Carrier false Other Structural Defect false Recent Travel History Outside of Country false Delivery Information Delivery Date Delivery Type Labor Anesthesia Weeks Gestation Incision Type Labor Labor Length Hrs Delivered By Post Complications Tubal Sterilization Discharge Date Comments Discharge Information Feeding Method Contraceptive Method Maternal HG B and HCT Levels
--- OUTSIDE RECORDS SUMMARY | 2024-07-18 11:49 | XMS_ITS | Continuity of Care Document ---
Author Name [facility] Organization [facility] Care Team Providers Care Steam Trap Man Name Role Phone [facility] Unavailable Unavailable Medications Combined list of outpatient medications from Department of Defense and Veterans Affairs facilities.Medications provided include 1) outpatient medications from the last 15 months, and 2) patient-reported medications. Medication Details Route Status Patient Instructions Prescription Expires Prescription Number Last Dispense Date Ordering Provider Order Date Order Qty Source LETROZOLE (LETROZOLE) , 2.5 MG, TABLET, ORAL, [facility], 30 ea. BOTTLE Active [id number] 2023 15 Pharmac y Data Transac tion Service Facilit y LETROZOLE (LETROZOLE) , 2.5 MG, TABLET, ORAL, [facility], 30 ea. BOTTLE Active [id number] 3 2023 10 Pharmac y Data Transac tion Service Facilit y LETROZOLE (LETROZOLE) , 2.5 MG, TABLET, ORAL, BRECKENRIDG E, 30 ea. BOTTLE Cancele d [id number] : 2023 0 Pharmac y Data Transac tion Service Facilit y LETROZOLE (LETROZOLE) , 2.5 MG, TABLET, ORAL, BRECKENRIDG E, 30 ea. BOTTLE Active [id number] 4 2023 15 Pharmac y Data Transac tion Service Facilit y LETROZOLE (LETROZOLE) , 2.5 MG, TABLET, ORAL, BRECKENRIDG E, 30 ea. BOTTLE Active [id number] 4 2023 15 Pharmac y Data Transac tion Service Facilit y LEVOTHYROXI NE SODIUM (levothyrox ine sodium), 50 MCG, TABLET, ORAL, [facility], 1000 ea. BOTTLE Active [id number] 4 2023 90 Pharmac y Data Transac tion Service Facilit y LEVOTHYROXI NE SODIUM (levothyrox ine sodium), 50 MCG, TABLET, ORAL, [facility]ARM[facility], 1000 ea. BOTTLE Active [id number] 4 2023 90 Pharmac y Data Transac tion Service Facilit y LEVOTHYROXI NE SODIUM (levothyrox ine sodium), 50 MCG, TABLET, ORAL, [facility], 1000 ea. BOTTLE Active [id number] 4 2023 90 Pharmac y Data Transac tion Service Facilit y METHYLPREDN ISOLONE (methylpred nisolone), 4 MG, TAB DS PK, ORAL, [employer], 21 ea. DOSE-PACK Active [id number] 4 2023 21 Pharmac y Data Transac tion Service Facilit y NITROFURANT OIN MONO-MACRO (NITROFURAN TOIN MONOHYD/M-C RYST), 100 MG, CAPSULE, ORAL, [employer], 100 ea. BOTTLE Active [id number] 2023 30 Pharmac y Data Transac tion Service Facilit y ONDANSETRON ODT (ONDANSETRO N), 4 MG, TAB RAPDIS, ORAL, [employer] [facility], 30 ea. BLIST PACK Active [id number] 4 2023 60 Pharmac y Data Transac tion Service Facilit y ONDANSETRON ODT (ONDANSETRO N), 4 MG, TAB RAPDIS, ORAL, [employer], 30 ea. BLIST PACK Active [id number] 4 2023 30 Pharmac y Data Transac tion Service Facilit y PREGNYL (chorionic gonadotropi n, human), 24776 UNIT, VIAL, INTRAMUSC, [employer], 1 ea. VIAL Active [id number] 4 2023 1 Pharmac y Data Transac tion Service Facilit y PREGNYL (GONADOTROP IN,CHORIONI C,HUMAN), 19681 UNIT, VIAL, INTRAMUSC, [employer]., 1 ea. VIAL Cancele d [id number] : 2023 0 Pharmac y Data Transac tion Service Facilit y Social History Combined list of available smoking, tobacco, and other social history from Department of Defense and Veterans Affairs facilities. Social History Type Response Date Comment Sourc e This section is an empty social history section. DoD
--- OUTSIDE RECORDS SUMMARY | 2024-07-18 11:49 | XMS_ITS | Continuity of Care Document ---
Author Organization [facility] Address [address] [place] [address] Assessment Encounter Date Assessment Date Assessment LastModified by Organization Details LastModified Time 04/24/2024 04/24/2024 Patient is __25_weeks . Discussed plan. Not available 04/25/2024 06:54:59 Plan of Treatment Reminders Order Date Submit [...] Abnormal Flag Note LastModifiedBy Organization Detail LastModifiedTime 01/31/2001/31/2024 US, obste tric, follo w-up No observ ation record ed. cammie Lindsay [address], [facility], [place], [address], 01/31/2024 12:59:11 02/01/20 24 02/01/2024 US, obste tric, follo w-up No observ ation record ed. [email or web address] [facility] Genetic Counselor [address] [place] [address] Krystyna [facility], [place], [address], 02/01/2024 16:12:06 02/01/20 24 02/01/2024 US, obste tric, follo w-up No observ ation record ed. [email or web address] Not Available 01/31 16:21:10 04/18/20 24 04/18/2024 US, obste tric, follo w-up No observ ation record ed. [facility] [address] [place], [address], 04/18/2024 13:46:37 04/18/20 24 04/18/2024 US, obste tric, follo w-up No observ ation record ed. [facility] [address] [place], [address], 04/18/2024 13:50:23 05/02/20 24 05/02/2024 US, obste tric, follo w-up No observ ation record ed. [email or web address] [facility] [address] [facility] [address], [place], [address], 05/02/2024 12:29:59 05/02/20 24 05/02/2024 US, obste tric, follo w-up No observ ation record ed. [email or web address] [facility] [address] [place], [address], 05/02/2024 15:11:09 05/16/20 24 05/16/2024 US, obste tric, follo w-up No observ ation record ed. [email or web address] [place], [address], 05/17/2024 14:19:03 05/16/20 24 05/16/2024 US, obste tric, follo w-up No observ ation record ed. [email or web address] [facility] Genetic Counselor [address], [address], 05/16/2024 14:58:04 05/31/20 24 05/31/2024 US, obste tric, follo w-up No observ ation record ed. [email or web address] [facility] Genetic Counselor [address] [facility] [address], [place], [address], 05/31/2024 13:32:19 05/31/2005/31/2024 US, obste tric, follo w-up No observ ation record ed. [email or web address] [facility] [address] [place], [address], 06/05/2024 12:01:28 Result Notes None recorded. Problems Name Problem SNOMED Code Status Onset Date Resolution Date Notes Provider Name and Address Organization Details Recorded Time 09091537 Active 2023 Julianna sanchez, [facility] 4 10:18:05 Artificia l inseminat ion Active done by SP Hiwot Hendrix CNM [address], [place], [address], [facility] 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 4 15:14:03 Amelie thyroidit is 97495235 Active on levothyro xine for infertilt y Hiwot Hendrix CNM [address], [place], [address], [facility] 4 15:14:03 Anemia 725502536 Active Mayra sanchez, [facility] 4 10:34:46 Problem Notes None recorded. Procedures Surgical History Date Name Laterality Status Provider Name and Address Organization Details Recorded Time 2023 intrauterine artificial insemination completed Julianna Fay [facility] 11/15/2023 09:25:10 2023 hysterosalpingography completed Julianna Fay [facility] 01/31/2024 10:15:23 2022 Date of Last Pap Smear completed Julianna Fay [facility] 06/28/2023 09:35:11 2009 procedure on wrist completed Julianna Fay [facility] 03/29/2023 16:11:52 Imaging Results None recorded. [...] injectio n 11/14/2023 in right hip lot [id number] Exp 06/25/20 24 Not Available Not Available [...] and Address Organization Details Last Updated DateTime 04/24/2024 157.48 cm 36.8 kg/m2 33657.06 637 g 137 mm[Hg] 75 mm[Hg] Julianna Fay [facility] 17:30:02 Social History Question Answer Notes LastModified by Organizat ion Details LastModified Time Tobacco Smoking Status Never Smoker Suni sanchez, [facility] 06/28/2023 09:26:18 What Is Your Level Of Alcohol Consumption? None [email or web address] Information not available 03/27/2024 If You Are , What Was Your Level Of Alcohol Consumption Prior To ? Occasional [email or web address] Information not available 03/27/2024 Are You Blind Or Do You Have Difficulty Seeing? No [email or web address] Information n ot available 03/29/2023 What Is Your Level Of Caffeine Consumption? Moderate [email or web address] Information not available 02/28/2024 In The 14 Days Before Symptom Onset, Have You Had Close Contact With A Laboratory-confirm ed COVID-19 While That Case Was Ill? No [email or web address] Information n ot available 03/29/2023 In The 14 Days Before Symptom Onset, Have You Had Close Contact With A Person Who Is Under Investigation For COVID-19 While That Person Was Ill? No [email or web address] Information not available 03/29/2023 Have You Been To An Area Known To Be High Risk For COVID-19? No [email or web address] Information not available 03/29/2023 Are You Deaf Or Do You Have Serious Difficulty Hearing? No [email or web address] Information not available 03/29/2023 What Type Of Diet Are You Following? REGULAR [email or web address] Information n ot available 03/29/2023 What Is The Highest Grade Or Level Of School You Have Completed Or The Highest Degree You Have Received? 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 No Information not available 02/28/2024 Have You Ever Been Counseled For Unhealthy Alcohol Use? No [email or web address] Information not available 06/28/2023 Do You Use Protection During Sex? No [email or web address] Information not available 01/05/2024 Do You Use Your Seat Belt Or Car Seat Routinely? Yes [email or web address] Information not available 03/29/2023 Do You Have Smoke And Carbon Monoxide Detectors In Your Home? Yes [email or web address] Information not available 03/29/2023 Do You Feel Stressed (tense, Restless, Nervous, Or Anxious, Or Unable To Sleep At Night)? [id number] [email or web address] Information not available 03/29/2023 Do You Use Any Illicit Or Recreational Drugs? No [email or web address] Information not available 03/29/2023 Do You Use Sunscreen Routinely? Yes [email or web address] Information not available 03/29/2023 Has Tobacco Cessation Counseling Been Provided? No Information not available 06/28/2023 Have You Used IV Drugs? No [email or web address] Information not available 02/28/2024 Do You Or Have You Ever Used Any Other Forms Of Tobacco Or Nicotine? No [email or web address] Information not available 06/28/2023 Sex: Unknown Functional Status Question Answer Note LastModified by Organizat ion Details LastModified Time Do you have difficulty walking or climbing stairs? No [email or web address] Information not available 06/28/2023 Are you able to walk? YESWOREST [email or web address] Information not available 03/29/2023 Are you able to care for yourself? Yes [email or web address] Information not available 06/28/2023 Do you have difficulty dressing or bathing? No [email or web address] Information not available 06/28/2023 What is your exercise level? Occasional [email or web address] Information not available 03/29/2023 Mental Status None recorded. Family History Relationship Description Onset Age of this Age Resolved Age Notes LastModified by Organization Details LastModified Time Mother Asthma [email or web address] Not available 05/03/2023 11:35:16 Maternal Grandmother Diabetes mellitus Not available 05/03 11:35:16 Medical History Condition [...] Diagnosis/Indication Diagnosis SNOMED-CT Code Diagnosis ICD10 Code [id number] [facility] [address] [address] 03/27/2024 17:42:04 03/28/2024 09:53:56 Routine care 952779697 Z34.92 [id number] [facility] [address] [address] 04/24/2024 16:49:11 04/25/2024 10:16:01 Routine care 232029744 Z34.92 Monochorio frank diamniotic twin 721207213 O30.009 Health Concerns Section Related Observation LastModified by Organization Detai ls LastModified Time None Recorded Concern Status LastModified by Organization Details LastModified Time None Recorded Payers Encounter Date Sequence Insurance Name Policy Number Policy Dale Covered Member ID Dale Member ID Guarantor Name 04/24/2024 1 [employer] - DOS PRIOR TO 2024 - [employer] - [employer] ( - PPO) Jin Watson [id number] Uzma Watson OBGyn Episode Ob Episode Information Episode Created Date Number of Fetuses Patient Bloodtype Patient rh Status Prepregnancy Weight lbs Domestic Partner Domestic Partner Phone Father Name Parachute Folder Status 01/31/20 24 2 O Positive 186 iJn Franco s OPEN Fetus Data First Name Last Name Admitted to NICU Weight (g) Sex Living Outcome Pediatric Complications Fetus ID Race Codes Race Delivery Type [id number] Problems Problem Notes Pt has f/u ultrasounds with Gabriela RICHARDSON on 02/22, 03/07, 03/20, 03/27. TTS BILL cox US 05/31 , 06/14 & 06/27 NST 06/18, 06/21 & covidSpecialist completed 1hr gtt failed, 3hr gtt passed. Problem Name Start Date End Date Resolution Snomed Code Not e Anemia 244279839 Amelie thyroiditis 68589301 on levothyroxine for infertilty Artificial insemination 67185050 done by SP Monochorionic diamniotic twin 516056627 MFM on 01/31 Jas Calculation JAS Calculation [...] Sound Latest Days Gestation 01/31/20 24 12 01/31/2024 08/08/19 25 6 Pre-renetta Flowsheet Flowsheet Date 01/31/2024 Han Score Blood Edema Fundus Height Fundus Units Glucose Ketones Leukocytes Nitrite Labor Signs Protein Cervic Dilation Cervic Effacement Cervic Station none Type Weight in lbs Pre/Post Dialysis Refused Weight 186.142543058990 BP Diastolic BP Location Tested BP Systolic [...] Weight in lbs Pre/Post Dialysis Refused Weight 191.591639620846 BP Diastolic BP Location Tested BP Systolic [...] Type Weight in lbs Pre/Post Dialysis Refused 193.85095576198 BP Diastolic BP Location Tested BP Systolic BP Type 72 110 Fetus Heart Rate Present A 138 Present B 150 Present Fetus Movement A No Comments doing well +FM, discussed ta leave when she starts feeling poorly, sees mfm every 2 weeks currently. if needs would like to have it at [facility] because of proximity to NICU, would still like to co-manage care for now, f/u 4 weeks then 28 weeks GCT,. precautions and education, gerd resolved with protonix Flowsheet Date 04/24/2024 Han Score Blood Edema Fundus Height Fundus Units Glucose Ketones Leukocytes Nitrite Labor Signs Protein Cervic Dilation Cervic Effacement Cervic Station trace Type Weight in lbs Pre/Post Dialysis Refused 201.638554692068 BP Diastolic BP Location Tested BP Systolic BP Type 75 137 Fetus Heart Rate Present Fetus Movement A Yes B Yes Comments Patient states that is havin g some back pain, hip pain, swelling and nausea. ok for disability placard, ok for maternity belt, planning c/s at [facility] at 37 weeeks, plan 4 week GCT here, education and precautions. +FM x 2 Flowsheet Date 05/22/2024 Han Score Blood Edema Fundus Height Fundus Units Glucose Ketones Leukocytes Nitrite Labor Signs Protein Cervic Dilation Cervic Effacement Cervic Station none Type Weight in lbs Pre/Post Dialysis Refused 206.795111671696 BP Diastolic BP Location Tested BP Systolic BP Type 67 124 Fetus Heart Rate Present A 145 B 138 Present Fetus Movement A Yes B Yes Comments Patient is having pelvic clarissa n, discharge, nausea and vomiting. doing well 37 week c/s at [facility] scheduled 07/18 +FM x2 precautions and education discuss rsv at next visit f/u 2 weeks Flowsheet Date 06/05/2024 Han Score Blood Edema Fundus Height Fundus Units Glucose Ketones Leukocytes Nitrite Labor Signs Protein Cervic Dilation Cervic Effacement Cervic Station none Type Weight in lbs Pre/Post Dialysis Refused 206.400316261872 BP Diastolic BP Location Tested BP Systolic BP Type 97 140 88 138 Fetus Heart Rate Present A 147 B 156 Fetus Movement A Yes B Yes Comments doing well +FM, discussed c/ s vs vaginal, baby b breech, will discuss with [facility] education and precautions Flowsheet Date 06/19/2024 Han Score Blood Edema Fundus Height Fundus Units Glucose Ketones Leukocytes Nitrite Labor Signs Protein Cervic Dilation Cervic Effacement Cervic Station Type Weight in lbs Pre/Post Dialysis Refused Weight 210.572214935460 BP Diastolic BP Location Tested BP Systolic BP Type 80 128 Fetus Heart Rate Present A 146 B 150 Fetus Movement A Yes B Yes Comments Patient states that is havin g pressure and nausea. +FM NST yesterday at [facility] precautions and education f/u 2 weeks Flowsheet Date 07/03/2024 Han Score Blood Edema Fundus Height Fundus Units Glucose Ketones Leukocytes Nitrite Labor Signs Protein Cervic Dilation Cervic Effacement Cervic Station Type Weight in lbs Pre/Post Dialysis Refused Weight 209.156822049983 BP Diastolic BP Location Tested BP Systolic [...] At Estimated Date of Delivery false Thalassemia (Moroccan, Singaporean, Mediterranean, Or Background): MCV < 80 false Neural Tube Defect (Meningom yelocele, Spina Bifida, Or Anencephaly) false Congenital Heart Defect false Down Syndrome false Lincoln-Sachs (eg, Zoroastrianism, Cajun, Upper Sorbian-Mackinac) f alse Jonny Disease false Sickle Cell Disease Or Trait () false Hemophilia Or Other Blood Disorders false Muscular Dystrophy false Cystic Fibrosis false Vini's Chorea false Intellectual Disability/Autism false If Yes, [...]
--- OUTSIDE RECORDS SUMMARY | 2024-07-18 11:49 | XMS_ITS | Continuity of Care Document ---
Author Organization [facility] [address] Address [address] [place] [phone] Encounter [facility] [id number] Date(s): 07/20/22 - 07/20/22 [facility] [address] [place] [address] [phone] Discharge Disposition: Home or Self Care Attending Physician: DO Vaughn Amy M Referring Physician: DO Vaughn Amy M Medications miSOPROStol 200 mcg oral tablet Start: 06/22/22 17:23:00 EST, 4 tab, vaginal, ONCE, Disp# 4 tab, Refills: 0, Pharmacy: [facility]/pharmacy#[id number] Start Date: 06/22/22 Status: Ordered Motrin 800 mg oral tablet Start: 06/22/22 17:26:00 EST, 1 tab, PO, tid, Disp# 15 tab, Refills: 1, PRN: as needed for pain, Pharmacy: [facility]/pharmacy #[id number] Start Date: 06/22/22 Status: Ordered Tylenol 500 mg oral tablet Start: 06/22/22 17:25:00 EST, 2 tab, PO, q8h, Disp# 24 tab, Refills: 1, PRN: as needed for pain, Pharmacy: [facility]/pharmacy #[id number] Start Date: 06/22/22 Status: Ordered Zofran 8 mg oral tablet Start: 06/22/22 17:26:00 EST, 1 tab, PO, bid, Disp# 12 tab, PRN: as needed for nausea/vomiting, Pharmacy: [facility]/pharmacy #[id number] Start Date: 06/22/22 Status: Ordered Problem List Diagnosis Diagnosis Type Effective Dates Health Status [facility] Service Informant Miscarriage 07/20/22 Non-Specified Results Laboratory List Name Date Beta hCG Quantitative. 07/20/22 Most recent to oldest [Reference Range]: 1 HCG (q) [<=5.1 mIU/mL] <5.0 mIU/mL (07/20/22 2:32 PM)
--- OUTSIDE RECORDS SUMMARY | 2024-07-18 11:49 | XMS_ITS | Data Portability ---
Author Organization [facility] [place] Address [address] [place] [address] Assessment Encounter Date Assessment Date Assessment LastModified by Organization Details LastModified Time 04/24/2024 04/24/2024 Patient is __25_weeks . Discussed plan. Not available 04/25/2024 06:54:59 05/22/2024 05/22/2024 Patient is __28_weeks . Discussed plan. [email or web address] Not available 05/22/2024 10:35:39 06/05/2024 06/05/2024 Patient is _30__weeks . Discussed plan. [email or web address] Not available 06/05/2024 09:48:07 06/19/2024 06/19/2024 Patient is _32__weeks . Discussed plan. Not available 06/19/2024 10:33:22 07/03/2024 07/03/2024 Patient is _34__weeks . Discussed plan. [email or web address] Not available 07/03/2024 10:12:00 Plan of Treatment [...] Abnormal Flag Note LastModifiedBy Organization Detail LastModifiedTime 05/22/2005/22/2024 HIV 1/2 ANTIG EN/AN TIBOD Y, REFLE X CONFI RMATI ON HIV antigen/anti body Nonrea ctive nonrea ctive HIV-1 antig en and HIV-1 /HIV- 2 antib odies were not detec stacey. No labor atory evide nce of HIV infec tion. Not Available [facility] (Lab) [address], [place], [address], 05/23/2024 20:55:53 05/22/20 24 05/22/2024 HEMAT OCRIT (HCT) HCT 32.5 % (based on docume nted legal sex) 34.0-4 5.0 low Not Available [facility] (Lab) [address], [place], [address], 05/23/2024 20:55:54 05/22/20 24 05/22/2024 HEMOG LOBIN (HGB) HGB 10.4 g/dL (based on docume nted legal sex) 11.6-1 5.4 low Not Available [facility] (Lab) [address], [place], [address], 05/23/2024 20:55:54 05/22/20 24 05/22/2024 RPR SCREE N, REFLE X TITER /CONF IRMAT ION RPR screen Nonrea ctive nonrea ctive Not Available [facility] (Lab) [address], [place], [address], 05/23/2024 20:55:54 04/18/20 24 04/18/2024 US, obste tric, follo w-up No observ ation record ed. [address] [place], [address], 04/18/2024 13:46:37 04/18/20 24 04/18/2024 US, obste tric, follo w-up No observ ation record ed. [address] [place], [address], 04/18/2024 13:50:23 05/02/20 24 05/02/2024 US, obste tric, follo w-up No observ ation record ed. [email or web address] [facility] [place] [address] [facility] [address], [place], [address], 05/02/2024 12:29:59 05/02/2005/02/2024 US, obste tric, follo w-up No observ ation record ed. [email or web address] [facility] [address] [place], [address], 05/02/2024 15:11:09 05/16/2005/16/2024 US, obste tric, follo w-up No observ ation record ed. [email or web address] [facility] [address] [place] [address], [address], 05/17/2024 14:19:03 05/16/2005/16/2024 US, obste tric, follo w-up No observ ation record ed. [facility] [address] [address], [place], [address], 05/16/2024 14:58:04 05/31/2005/31/2024 US, obste tric, follo w-up No observ ation record ed. [email or web address] [facility] [address] [facility] [address], [place], [address], 05/31/2024 13:32:19 05/31/2005/31/2024 US, obste tric, follo w-up No observ ation record ed. [email or web address] [facility] [address] [place] [address], [address], 06/05/2024 12:01:28 Result Notes None recorded. Problems Name Problem SNOMED Code Status Onset Date Resolution Date Notes Provider Name and Address Organization Details Recorded Time 15899473 Active [address] [facility] 06/26/202 4 10:18:05 Artificia l inseminat ion Active done by SP Hiwot Hendrix CNM [address], [place], [address], [facility] 4 15:14:03 Monochori onic diamnioti c twin 527006612 Active MFM on 01/31 Hiwot Hendrix CNM [address], [place], [address], [facility] 4 15:14:03 Amelie thyroidit is 53197231 Active on levothyro xine for infertilt y Hiwot Hendrix CNM [address], [place], [address], [facility] 4 15:14:03 Anemia 793535259 Active Mayra sanchez, [facility] 4 10:34:46 Problem Notes None recorded. Procedures Surgical History Date Name Laterality Status Provider Name and Address Organization Details Recorded Time 2023 intrauterine artificial insemination completed Juliannakem Fay [facility] 11/15/2023 09:25:10 2023 [facility] 01/31/2024 10:15:23 2022 Date of Last Pap Smear completed Juliannakem Fay [facility] 06/28/2023 09:35:11 2009 procedure on wrist [facility] 03/29/2023 16:11:52 Imaging Results Imaging Date Name Status LastModified by Organiz ation Details LastModified Time 04/18/2024 US, obstetric, follow-up completed [address] [place], [address], 04/18/2024 13:46:37 04/18/2024 US, obstetric, follow-up completed ANGIE [facility] [address] [place], [address], 04/18/2024 13:50:23 05/02/2024 US, obstetric, follow-up completed [address] [facility] [address], [place], [address], 05/02/2024 12:29:59 05/02/2024 US, obstetric, follow-up completed [email or web address] [facility] [address] [place], [address], 05/02/2024 15:11:09 05/16/2024 US, obstetric, follow-up completed [email or web address] [address], [address], 05/17/2024 14:19:03 05/16/2024 US, obstetric, follow-up completed [email or web address] [facility] [address] [address], [place], [address], 05/16/2024 14:58:04 05/31/2024 US, obstetric, follow-up completed [email or web address] [facility] [address] [facility] [address], [place], [address], 05/31/2024 13:32:19 05/31/2024 US, obstetric, follow-up completed [address] [place] [address], [address], 06/05/2024 12:01:28 Procedure Notes None recorded. Medical Equipment None [...] injectio n 11/14/2023 in right hip lot [id number] Exp 06/25/20 24 Not Available Not Available [...] Updated DateTime 04/24/2024 157.48 cm 36.8 kg/m2 49327.06 637 g 137 mm[Hg] 75 mm[Hg] Julianna Fay [facility] 4 17:30:02 Date Recorded Body weight Body mass index (BMI) Body height Systolic blood pressure Diastolic blood pressure Provider Name and Address Organization Details Last Updated DateTime 05/22/2024 33431.02 822 g 37.7 kg/m2 157.48 cm 124 mm[Hg] 67 mm[Hg] Julianna Fay [facility] 4 09:42:15 Date Recorded Body height Body mass index (BMI) Body weight Systolic blood pressure Diastolic blood pressure Systolic blood pressure Diastolic blood pressure Provider Name and Address Organization Details Last Updated DateTime 4 157.48 cm 37.7 kg/m2 89111.0 2822 g 140 mm[Hg] 97 mm[Hg] 138 mm[Hg] 88 mm[Hg] Julianna Fay [facility] 4 09:30:12 Date Recorded Body height Body mass index (BMI) Body weight Systolic blood pressure Diastolic blood pressure Provider Name and Address Organization Details Last Updated DateTime 06/19/2024 157.48 cm 38.4 kg/m2 06598.4 g 128 mm[Hg] 80 mm[Hg] Julianna Fay [facility] 4 10:04:11 Date Recorded Body height Body mass index (BMI) Body weight Systolic blood pressure Diastolic blood pressure Provider Name and Address Organization Details Last Updated DateTime 07/03/2024 157.48 cm 38.2 kg/m2 70702.81 g 123 mm[Hg] 84 mm[Hg] Julianna Fay [facility] 10:10:55 Social History Question Answer Notes LastModified by Organizat ion Details LastModified Time Tobacco Smoking Status Never Smoker Suni Mcdowelljose sanchez, [facility] 06/28/2023 09:26:18 What Is Your Level Of Alcohol Consumption? None [email or web address] Information not available 03/27/2024 If You Are , What Was Your Level Of Alcohol Consumption Prior To ? Occasional [email or web address] Information not available 03/27/2024 Are You Blind Or Do You Have Difficulty Seeing? No [email or web address] Information n ot available 03/29/2023 What Is Your Level Of Caffeine Consumption? Moderate Information not available 02/28/2024 In The 14 Days Before Symptom Onset, Have You Had Close Contact With A Laboratory-confirm ed COVID-19 While That Case Was Ill? No [email or web address] Information n ot available 03/29/2023 In The 14 Days Before Symptom Onset, Have You Had Close Contact With A Person Who Is Under Investigation For COVID-19 While That Person Was Ill? No [email or web address] Information not available 03/29/2023 Have You Been To An Area Known To Be High Risk For COVID-19? No [email or web address] Information not available 03/29/2023 Are You Deaf Or Do You Have Serious Difficulty Hearing? No [email or web address] Information not available 03/29/2023 What Type Of Diet Are You Following? REGULAR [email or web address] Information n ot available 03/29/2023 What Is The Highest Grade Or Level Of School You Have Completed Or The Highest Degree You Have Received? 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 No [email or web address] Information not available 02/28/2024 Have You Ever Been Counseled For Unhealthy Alcohol Use? No [email or web address] Information not available 06/28/2023 Do You Use Protection During Sex? No [email or web address] Information not available 01/05/2024 Do You Use Your Seat Belt Or Car Seat Routinely? Yes [email or web address] Information not available 03/29/2023 Do You Have Smoke And Carbon Monoxide Detectors In Your Home? Yes [email or web address] Information not available 03/29/2023 Do You Feel Stressed (tense, Restless, Nervous, Or Anxious, Or Unable To Sleep At Night)? [id number] [email or web address] Information not available 03/29/2023 Do You Use Any Illicit Or Recreational Drugs? No Information not available 03/29/2023 Do You Use Sunscreen Routinely? Yes [email or web address] Information not available 03/29/2023 Has Tobacco Cessation Counseling Been Provided? No [email or web address] Information not available 06/28/2023 Have You Used IV Drugs? No [email or web address] Information not available 02/28/2024 Do You Or Have You Ever Used Any Other Forms Of Tobacco Or Nicotine? No [email or web address] Information not available 06/28/2023 Sex: Unknown Functional Status Question Answer Note LastModified by Organizat ion Details LastModified Time Do you have difficulty walking or climbing stairs? No [email or web address] Information not available 06/28/2023 Are you able to walk? YESWOREST [email or web address] Information not available 03/29/2023 Are you able to care for yourself? Yes [email or web address] Information not available 06/28/2023 Do you have difficulty dressing or bathing? No [email or web address] Information not available 06/28/2023 What is your exercise level? Occasional [email or web address] Information not available 03/29/2023 Mental Status None recorded. Family History Relationship Description Onset Age of this Age Resolved Age Notes LastModified by Organization Details LastModified Time Mother Asthma [email or web address] Not available 05/03/2023 11:35:16 Maternal Grandmother Diabetes mellitus [email or web address] Not available 05/03 11:35:16 Medical History Condition [...] Diagnosis/Indication Diagnosis SNOMED-CT Code Diagnosis ICD10 Code [id number] [facility] [address] [address] 03/29/2023 15:11:07 03/29/2023 17:07:51 Trying to conceive 666352853 Z31.9 Thyroid fu nction tests abnormal 905340290 R94.6 [id number] [facility] [address] [address] 05/03/2023 11:19:29 05/03/2023 12:16:53 Irregular periods 63857395 N92.6 [id number] Sherrie Porter [place] [address] [address] 06/12/2023 10:55:22 06/12/2023 11:29:50 Dysuria 91834959 R30.0 [id number] [facility] [address] [address] 06/28/2023 09:25:48 06/28/2023 10:34:34 Female infertility 3327934 N97.9 Gynecologi c examination 71375408 Z01.419 [id number] Hiwot Hendrix [facility] [address] [address] 10/04/2023 11:33:01 10/04/2023 12:56:37 Female infertility 7562418 N97.9 [id number] [facility] [address] [address] 11/10/2023 16:50:28 11/11/2023 17:31:23 Female infertility 4330779 N97.9 [id number] [facility] [address] [address] 11/13/2023 09:28:36 11/13/2023 10:05:17 Female infertility 7734596 N97.9 [id number] Hiwot Hendrix [facility] [address],[place] [address] 11/15/2023 08:50:41 11/15/2023 10:37:13 Artificial insemination 38381231 Z31.83 [id number] Julianna Fay [place] [address] [address] 11/15/2023 20:06:54 11/16/2023 07:36:47 Trying to conceive 553748079 Z31.9 [id number] [facility] [address] [address] 12/25/2023 09:25:15 12/25/2023 10:45:28 Multiple following assisted fertilization 8372873467 O09.811 O30.011 Z3A.01 [id number] [facility] [address] [address] 01/04/2024 09:28:50 01/04/2024 10:14:36 [id number] Hiwot Hendrix [facility] [address] [address] 01/05/2024 14:01:11 01/05/2024 14:49:26 Venereal disease screening 536720073 Z11.3 Nausea and vomiting 1693 2000 R11.2 Monochorio frank diamniotic twin 404735446 O30.009 [id number] Analilia Irwin [place] [address] [address] 01/31/2024 09:29:15 01/31/2024 10:09:29 [id number] Julianna Fay [place] [address] [address] 01/31/2024 09:29:38 01/31/2024 11:17:43 Gestation period, 12 weeks 40608298 Z3A.12 [id number] Hiwot Hendrix [facility] [address] [address] 02/28/2024 14:45:01 02/28/2024 15:28:05 Gestation period, 16 weeks 69642764 Z3A.16 Gastroesop hageal reflux disease 152622392 K21.9 [id number] Hiwot Hendrix [facility] [address],[place] [address] 03/27/2024 17:42:04 03/28/2024 09:53:56 Routine care 111456952 Z34.92 [id number] Hiwot Hendrix [facility] [address] [address] 04/24/2024 16:49:11 04/25/2024 10:16:01 Routine care 045889529 Z34.92 Monochorio frank diamniotic twin 397002203 O30.009 [id number] Hiwot Hendrix [facility] [address] [address] 05/22/2024 09:29:03 05/22/2024 10:37:30 Routine care 571577265 Z34.92 [id number] Hiwot Hendrix [facility] [address] [address] 06/05/2024 09:18:38 06/05/2024 09:48:56 Routine care 888674738 Z34.92 [id number] Hiwot Hendrix [facility] [address] [address] 06/19/2024 09:40:08 06/19/2024 10:39:08 Gestation period, 32 weeks 3596997 Z3A.32 [id number] Hiwot Hendrix [facility] [address] [address] 07/03/2024 09:57:40 07/03/2024 10:27:45 Gestation period, 34 weeks 58591141 Z3A.34 Health Concerns Section Related Observation LastModified by Organization Detai ls LastModified Time None Recorded Concern Status LastModified by Organization Details LastModified Time None Recorded Advance Directives Directive None Recorded Payers Encounter Date Sequence Insurance Name Policy Number Policy Dale Covered Member ID Dale Member ID Guarantor Name 04/24/2024 1 [employer] - [place] PRIOR TO 2024 - [employer] - [employer] ( - PPO) Jin Watson [id number] Uzma Watson 05/22/2024 1 [employer] - [place] PRIOR TO 2024 - [employer] - [employer] ( - PPO) Jin Watson [id number] Uzma Watson 06/05/2024 1 [place] - [place] PRIOR TO 2024 - [employer] - [employer] ( - PPO) Jin Watson [id number] Uzma Watson 06/19/2024 1 [employer] - [place] PRIOR TO 2024 - [employer] - [employer] ( - PPO) Jin Watson [id number] Uzma Watson 07/03/2024 1 [place] - DOS PRIOR TO 2024 - [employer] - [employer] ( - PPO) Jin Watson [id number] Uzma Watson OBGyn Episode Ob Episode Information Episode Created Date Number of Fetuses Patient Bloodtype Patient rh Status Prepregnancy Weight lbs Domestic Partner Domestic Partner Phone Father Name Mortar Worker Status 01/31/20 24 2 O Positive 186 Jin woodard OPEN Fetus Data First Name Last Name Admitted to NICU Weight (g) Sex Living Outcome Pediatric Complications Fetus ID Race Codes Race Delivery Type [id number] Problems Problem Notes Pt has f/u ultrasounds with Gabriela [facility] on 02/22, 03/07, 03/20, 03/27. TTS BILL cox US 05/31 , 06/14 & 06/27 NST 06/18, 06/21 & covidSpecialist completed 1hr gtt failed, 3hr gtt passed. Problem Name Start Date End Date Resolution Snomed Code Not e Anemia 033251700 Amelie thyroiditis 04602121 on levothyroxine for infertilty Artificial insemination 66445632 done by SP Monochorionic diamniotic twin [id number] [facility] on 01/31 Jas Calculation JAS Calculation Method Initial Jas Date Initial Exam Date Initial Exam Provider Initial Ultrasound Date Last Menstrual Period Date Ultra Sound Weeks Gestation Conception by IVF Embryo Age at Transfer Date of Transfer 08/08/19 24 01/04/20 24 01/04/2024 11/02/2023 9 Eighteen To Twenty Week Jas Update Ultra Sound Date Fundal Height At Umbil Quickening Date Ultra Sound Latest Weeks Gestation Final Jas Confirmed By Final Jas Confirmed Date Final Jas Date Ultra Sound Latest Days Gestation 01/31/20 24 12 [email or web address] 01/31/2024 08/08/19 25 6 Pre-renetta Flowsheet Flowsheet Date 01/31/2024 Han Score Blood Edema Fundus Height Fundus Units Glucose Ketones Leukocytes Nitrite Labor Signs Protein Cervic Dilation Cervic Effacement Cervic Station none Type Weight in lbs Pre/Post Dialysis Refused Weight 186.185739380010 BP Diastolic BP Location Tested BP Systolic [...] Weight in lbs Pre/Post Dialysis Refused Weight 191.109023181033 BP Diastolic BP Location Tested BP Systolic [...] Type Weight in lbs Pre/Post Dialysis Refused 193.78790311563 BP Diastolic BP Location Tested BP Systolic BP Type 72 110 Fetus Heart Rate Present A 138 Present B 150 Present Fetus Movement A No Comments doing well +FM, discussed ta leave when she starts feeling poorly, sees mfm every 2 weeks currently. if needs would like to have it at [facility] because of proximity to NICU, would still like to co-manage care for now, f/u 4 weeks then 28 weeks GCT,. precautions and education, gerd resolved with protonix Flowsheet Date 04/24/2024 Han Score Blood Edema Fundus Height Fundus Units Glucose Ketones Leukocytes Nitrite Labor Signs Protein Cervic Dilation Cervic Effacement Cervic Station trace Type Weight in lbs Pre/Post Dialysis Refused 201.079520909931 BP Diastolic BP Location Tested BP Systolic BP Type 75 137 Fetus Heart Rate Present Fetus Movement A Yes B Yes Comments Patient states that is havin g some back pain, hip pain, swelling and nausea. ok for disability placard, ok for maternity belt, planning c/s at [facility] at 37 weeeks, plan 4 week GCT here, education and precautions. +FM x 2 Flowsheet Date 05/22/2024 Han Score Blood Edema Fundus Height Fundus Units Glucose Ketones Leukocytes Nitrite Labor Signs Protein Cervic Dilation Cervic Effacement Cervic Station none Type Weight in lbs Pre/Post Dialysis Refused 206.226551949813 BP Diastolic BP Location Tested BP Systolic BP Type 67 124 Fetus Heart Rate Present A 145 B 138 Present Fetus Movement A Yes B Yes Comments Patient is having pelvic clarissa n, discharge, nausea and vomiting. doing well 37 week c/s at [facility] scheduled 07/18 +FM x2 precautions and education discuss rsv at next visit f/u 2 weeks Flowsheet Date 06/05/2024 Han Score Blood Edema Fundus Height Fundus Units Glucose Ketones Leukocytes Nitrite Labor Signs Protein Cervic Dilation Cervic Effacement Cervic Station none Type Weight in lbs Pre/Post Dialysis Refused 206.740602500495 BP Diastolic BP Location Tested BP Systolic BP Type 97 140 88 138 Fetus Heart Rate Present A 147 B 156 Fetus Movement A Yes B Yes Comments doing well +FM, discussed c/ s vs vaginal, baby b breech, will discuss with [facility] education and precautions Flowsheet Date 06/19/2024 Han Score Blood Edema Fundus Height Fundus Units Glucose Ketones Leukocytes Nitrite Labor Signs Protein Cervic Dilation Cervic Effacement Cervic Station Type Weight in lbs Pre/Post Dialysis Refused Weight 210.463154970685 BP Diastolic BP Location Tested BP Systolic BP Type 80 128 Fetus Heart Rate Present A 146 B 150 Fetus Movement A Yes B Yes Comments Patient states that is havin g pressure and nausea. +FM NST yesterday at [facility] precautions and education f/u 2 weeks Flowsheet Date 07/03/2024 Han Score Blood Edema Fundus Height Fundus Units Glucose Ketones Leukocytes Nitrite Labor Signs Protein Cervic Dilation Cervic Effacement Cervic Station Type Weight in lbs Pre/Post Dialysis Refused Weight 209.212148540714 BP Diastolic BP Location Tested BP Systolic [...] At Estimated Date of Delivery false Thalassemia (Georgian, Bermudian, Mediterranean, Or Background): MCV < 80 false Neural Tube Defect (Meningom yelocele, Spina Bifida, Or Anencephaly) false Congenital Heart Defect false Down Syndrome false Lincoln-Sachs (eg, Scientology, Cajun, Vietnamese-Belizean) f alse Jonny Disease false Sickle Cell [...] Method Maternal HG B and HCT Levels Ob Episode Information Episode Created Date Number of Fetuses Patient Bloodtype Patient rh Status Prepregnancy Weight lbs Domestic Partner Domestic Partner Phone Father Name Mortar Worker Status 03/29/20 23 1 CLOSED Fetus Data First Name Last Name Admitted to NICU Weight (g) Sex Living Outcome Pediatric Complications Fetus ID Race Codes Race Delivery Type , Spontane ous [id number] Jas Calculation JAS Calculation Method Initial Jas Date Initial Exam Date Initial Exam Provider Initial Ultrasound Date Last Menstrual Period Date Ultra Sound Weeks Gestation Conception by IVF Embryo Age at Transfer Date of Transfer 0 Eighteen To Twenty Week Jas Update Ultra Sound Date Fundal Height At Umbil Quickening Date Ultra Sound Latest Weeks Gestation Final Jas Confirmed By Final Jas Confirmed Date Final Jas Date Ultra Sound Latest Days Gestation 0 0 Menstrual History Last Menstrual Date Menses Monthly On Bcp Conception Prior Menses Frequency Hcg Plus Date Menarche Onset Age Delivery Information Delivery Date Delivery Type Labor Anesthesia Weeks Gestation Incision Type Labor Labor Length Hrs Delivered By Post Complications Tubal Sterilization Discharge Date Comments 2 Discharge Information Feeding Method Contraceptive Method Maternal HG B and HCT Levels
--- OUTSIDE RECORDS SUMMARY | 2024-07-18 11:49 | XMS_ITS | Continuity of Care Document ---
Author Organization [facility] [address] [place] [address] [id number] Encounter [facility] [id number] Date(s): 06/03/22 - 06/03/22 [facility] [address] [id number] [place] Discharge Disposition: Home or Self Care Attending Physician: MD Denise Matthew James Referring Physician: MD Denise Matthew James Results Radiology Reports * Exam Date Time Procedure Performing Provider Status 06/03/22 9:28 AM US OB Transvaginal Ambreen Walker; Final Notes: (US OB Transvaginal) Reason For Exam: Dating US OB Transvaginal Exam: US OB Transvaginal HISTORY: Dating and viability COMPARISONS: None TECHNIQUE: Transvaginal sonography of the pelvis. FINDINGS: MENSTRUAL HISTORY: LMP: 04/09/2022 GA by LMP: 7 weeks 6 days GA by current US: 6 weeks 0 days JAS by LMP: 01/14/2023 JAS by current US: 01/27/2023 The uterus and ovaries are normal in appearance with a left corpus sodium. There is a single living intrauterine . The crown-rump length is 3.5 mm. This estimates a gestational age of 6 weeks 0 days. cardiac activity is noted at 91 bpm. The rhythm appears normal. Small perigestational collection is noted. IMPRESSION: Single living intrauterine . The heart rate of 91 bpm is likely secondary to the small size of the pole. Current gestational age: 6 weeks 0 days by crown-rump length JAS: 01/27/2023 [place] Act 112: This study does not meet the requirements of [place] Act 112. Workstation ID: [id number] Final Dictated by:DO Carroll Dennis M Dictated DT/TM:06/03/2022 10:24 Signed by:DO Carroll Dennis M Signed (Electronic Signature):06/03/2022 10:23 US transvaginal for * DO Carroll Dennis M: VERIFY, VERIFY DO Carroll Dennis M: VERIFY Contributor_system, [id number]: PERFORM Event Display: Report Authored Date: [id number] Exam: US OB Transvaginal HISTORY: Dating and viability COMPARISONS: None TECHNIQUE: Transvaginal sonography of the pelvis. FINDINGS: MENSTRUAL HISTORY: LMP: 04/09/2022 GA by LMP: 7 weeks 6 days GA by current US: 6 weeks 0 days JAS by LMP: 01/14/2023 JAS by current US: 01/27/2023 The uterus and ovaries are normal in appearance with a left corpus sodium. There is a single living intrauterine . The crown-rump length is 3.5 mm. This estimates a gestational age of 6 weeks 0 days. cardiac activity is noted at 91 bpm. The rhythm appears normal. Small perigestational collection is noted. IMPRESSION: Single living intrauterine . The heart rate of 91 bpm is likely secondary to the small size of the pole. Current gestational age: 6 weeks 0 days by crown-rump length JAS: 01/27/2023 [place] Act 112: This study does not meet the requirements of [place] Act 112. Workstation ID: [id number] Final Dictated by:DO Carroll Dennis M Dictated DT/TM:06/03/2022 10:24 Signed by:DO Carroll Dennis M Signed (Electronic Signature):06/03/2022 10:23
--- OUTSIDE RECORDS SUMMARY | 2024-07-18 11:49 | XMS_ITS | Continuity of Care Document ---
Author Organization [facility] Address [address] [place] [address] Assessment Encounter Date Assessment Date Assessment LastModified by Organization Details LastModified Time 05/22/2024 05/22/2024 Patient is __28_weeks . Discussed plan. Not available 05/22/2024 10:35:39 Plan of Treatment Reminders Order Date Submit [...] observ ation record ed. cammie Lindsay [address], [facility], [place], [address], 01/31/2024 12:59:11 02/01/20 24 02/01/2024 US, obste tric, follo w-up No observ ation record ed. [email or web address] [facility] [address] [place] [address] Krystyna [facility], [place], [address], 02/01/2024 16:12:06 02/01/20 24 02/01/2024 US, obste tric, follo w-up No observ ation record ed. [email or web address] Not Available 01/31 16:21:10 04/18/20 24 04/18/2024 US, obste tric, follo w-up No observ ation record ed. [facility] [address] [place], [address], 04/18/2024 13:46:37 04/18/20 24 04/18/2024 US, obste tric, follo w-up No observ ation record ed. [facility] [address] [place], [address], 04/18/2024 13:50:23 05/02/20 24 05/02/2024 US, obste tric, follo w-up No observ ation record ed. [email or web address] [facility] [address] [facility] [address], [place], [address], 05/02/2024 12:29:59 05/02/20 24 05/02/2024 US, obste tric, follo w-up No observ ation record ed. [email or web address] [facility] [address] [place], [address], 05/02/2024 15:11:09 05/16/20 24 05/16/2024 US, obste tric, follo w-up No observ ation record ed. [email or web address] [place], [address], 05/17/2024 14:19:03 05/16/20 24 05/16/2024 US, obste tric, follo w-up No observ ation record ed. [facility] [address], [address], 05/16/2024 14:58:04 05/31/20 24 05/31/2024 US, obste tric, follo w-up No observ ation record ed. [email or web address] [facility] [address] [facility] [address], [place], [address], 05/31/2024 13:32:19 05/31/2005/31/2024 US, obste tric, follo w-up No observ ation record ed. [facility] [address] [place], [address], 06/05/2024 12:01:28 Result Notes None recorded. Problems Name Problem SNOMED Code Status Onset Date Resolution Date Notes Provider Name and Address Organization Details Recorded Time 78340983 Active 2023 Julianna sanchez, [facility] 4 10:18:05 Artificia l inseminat ion Active done by SP Hiwot Hendrix CNM [address], [place], [address], [facility] 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 4 15:14:03 Amelie thyroidit is 73659221 Active on levothyro xine for infertilt y Hiwot Hendrix CNM [address], [place], [address], [facility] 4 15:14:03 Anemia 698501488 Active Mayra sanchez, [facility] 4 10:34:46 Problem Notes None recorded. Procedures Surgical History Date Name Laterality Status Provider Name and Address Organization Details Recorded Time 2023 intrauterine artificial insemination completed Julianna Fay [facility] 11/15/2023 09:25:10 2023 hysterosalpingography completed Julianna Fay [facility] 01/31/2024 10:15:23 2022 Date of Last Pap Smear completed Julianna Fay [facility] 06/28/2023 09:35:11 2009 procedure on wrist completed Julianna Fay [facility] 03/29/2023 16:11:52 Imaging Results None recorded. [...] injectio n 11/14/2023 in right hip lot [id number] Exp 06/25/20 24 Not Available Not Available [...] No t Available Vitals Date Recorded Body weight Body mass index (BMI) Body height Systolic blood pressure Diastolic blood pressure Provider Name and Address Organization Details Last Updated DateTime 05/22/2024 22833.02 822 g 37.7 kg/m2 157.48 cm 124 mm[Hg] 67 mm[Hg] Julianna Fay [facility] 09:42:15 Social History Question Answer Notes LastModified by Organizat ion Details LastModified Time Tobacco Smoking Status Never Smoker Suni sanchez, [facility] 06/28/2023 09:26:18 What Is Your Level Of Alcohol Consumption? None Information not available 03/27/2024 If You Are , What Was Your Level Of Alcohol Consumption Prior To ? Occasional [email or web address] Information not available 03/27/2024 Are You Blind Or Do You Have Difficulty Seeing? No [email or web address] Information n ot available 03/29/2023 What Is Your Level Of Caffeine Consumption? Moderate [email or web address] Information not available 02/28/2024 In The 14 Days Before Symptom Onset, Have You Had Close Contact With A Laboratory-confirm ed COVID-19 While That Case Was Ill? No [email or web address] Information n ot available 03/29/2023 In The 14 Days Before Symptom Onset, Have You Had Close Contact With A Person Who Is Under Investigation For COVID-19 While That Person Was Ill? No [email or web address] Information not available 03/29/2023 Have You Been To An Area Known To Be High Risk For COVID-19? No [email or web address] Information not available 03/29/2023 Are You Deaf Or Do You Have Serious Difficulty Hearing? No [email or web address] Information not available 03/29/2023 What Type Of Diet Are You Following? REGULAR [email or web address] Information n ot available 03/29/2023 What Is The Highest Grade Or Level Of School You Have Completed Or The Highest Degree You Have Received? 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 No Information not available 02/28/2024 Have You Ever Been Counseled For Unhealthy Alcohol Use? No [email or web address] Information not available 06/28/2023 Do You Use Protection During Sex? No [email or web address] Information not available 01/05/2024 Do You Use Your Seat Belt Or Car Seat Routinely? Yes [email or web address] Information not available 03/29/2023 Do You Have Smoke And Carbon Monoxide Detectors In Your Home? Yes Information not available 03/29/2023 Do You Feel Stressed (tense, Restless, Nervous, Or Anxious, Or Unable To Sleep At Night)? [id number] [email or web address] Information not available 03/29/2023 Do You Use Any Illicit Or Recreational Drugs? No [email or web address] Information not available 03/29/2023 Do You Use Sunscreen Routinely? Yes [email or web address] Information not available 03/29/2023 Has Tobacco Cessation Counseling Been Provided? No [email or web address] Information not available 06/28/2023 Have You Used IV Drugs? No [email or web address] Information not available 02/28/2024 Do You Or Have You Ever Used Any Other Forms Of Tobacco Or Nicotine? No [email or web address] Information not available 06/28/2023 Sex: Unknown Functional Status Question Answer Note LastModified by Organizat ion Details LastModified Time Do you have difficulty walking or climbing stairs? No [email or web address] Information not available 06/28/2023 Are you able to walk? YESWOREST [email or web address] Information not available 03/29/2023 Are you able to care for yourself? Yes [email or web address] Information not available 06/28/2023 Do you have difficulty dressing or bathing? No [email or web address] Information not available 06/28/2023 What is your exercise level? Occasional [email or web address] Information not available 03/29/2023 Mental Status None recorded. Family History Relationship Description Onset Age of this Age Resolved Age Notes LastModified by Organization Details LastModified Time Mother Asthma [email or web address] Not available 05/03/2023 11:35:16 Maternal Grandmother Diabetes mellitus [email or web address] Not available 05/03 11:35:16 Medical History Condition Response Allergies (Food, seasonal, environmental ) N Other N Blood Transfusion N Drug/Latex Allergies/Reactions N Breast Cancer N Dermatologic Disorders N Lung Disease N [...] Diagnosis/Indication Diagnosis SNOMED-CT Code Diagnosis ICD10 Code [id number] [facility] [address] [address] 04/24/2024 16:49:11 04/25/2024 10:16:01 Routine care 155542989 Z34.92 Monochorio frank diamniotic twin 480824353 O30.009 [id number] Hiwot Hendrix CNM [place] [address] [address] 05/22/2024 09:29:03 05/22/2024 10:37:30 Routine care 705511540 Z34.92 Health Concerns Section Related Observation LastModified by Organization Detai ls LastModified Time None Recorded Concern Status LastModified by Organization Details LastModified Time None Recorded Payers Encounter Date Sequence Insurance Name Policy Number Policy Dale Covered Member ID Dale Member ID Guarantor Name 05/22/2024 1 [employer] - DOS PRIOR TO 2024 - [employer] - [employer] ( - PPO) Jin Watson [id number] Uzma Watson OBGyn Episode Ob Episode Information Episode Created Date Number of Fetuses Patient Bloodtype Patient rh Status Prepregnancy Weight lbs Domestic Partner Domestic Partner Phone Father Name Needle Loom Tender Status 01/31/20 24 2 O Positive 186 Jin Franco s OPEN Fetus Data First Name Last Name Admitted to NICU Weight (g) Sex Living Outcome Pediatric Complications Fetus ID Race Codes Race Delivery Type [id number] Problems Problem Notes Pt has f/u ultrasounds with Gabriela RICHARDSON on 02/22, 03/07, 03/20, 03/27. TTS BILL cox US 05/31 , 06/14 & 06/27 NST 06/18, 06/21 & covidSpecialist completed 1hr gtt failed, 3hr gtt passed. Problem Name Start Date End Date Resolution Snomed Code Not e Anemia 906319723 Amelie thyroiditis 65513963 on levothyroxine for infertilty Artificial insemination 95726239 done by SP Monochorionic diamniotic twin 248790451 MFM on 01/31 Jas Calculation JAS Calculation [...] Ultra Sound Latest Days Gestation 01/31/20 24 01/31/2024 08/08/19 25 6 Pre-renetta Flowsheet Flowsheet Date 01/31/2024 Han Score Blood Edema Fundus Height Fundus Units Glucose Ketones Leukocytes Nitrite Labor Signs Protein Cervic Dilation Cervic Effacement Cervic Station none Type Weight in lbs Pre/Post Dialysis Refused Weight 186.042714750517 BP Diastolic BP Location Tested BP Systolic [...] Weight in lbs Pre/Post Dialysis Refused Weight 191.410174812591 BP Diastolic BP Location Tested BP Systolic [...] Type Weight in lbs Pre/Post Dialysis Refused 193.48915998450 BP Diastolic BP Location Tested BP Systolic BP Type 72 110 Fetus Heart Rate Present A 138 Present B 150 Present Fetus Movement A No Comments doing well +FM, discussed ta leave when she starts feeling poorly, sees mfm every 2 weeks currently. if needs would like to have it at [facility] because of proximity to NICU, would still like to co-manage care for now, f/u 4 weeks then 28 weeks GCT,. precautions and education, gerd resolved with protonix Flowsheet Date 04/24/2024 Han Score Blood Edema Fundus Height Fundus Units Glucose Ketones Leukocytes Nitrite Labor Signs Protein Cervic Dilation Cervic Effacement Cervic Station trace Type Weight in lbs Pre/Post Dialysis Refused 201.173434675862 BP Diastolic BP Location Tested BP Systolic BP Type 75 137 Fetus Heart Rate Present Fetus Movement A Yes B Yes Comments Patient states that is havin g some back pain, hip pain, swelling and nausea. ok for disability placard, ok for maternity belt, planning c/s at [facility] at 37 weeeks, plan 4 week GCT here, education and precautions. +FM x 2 Flowsheet Date 05/22/2024 Han Score Blood Edema Fundus Height Fundus Units Glucose Ketones Leukocytes Nitrite Labor Signs Protein Cervic Dilation Cervic Effacement Cervic Station none Type Weight in lbs Pre/Post Dialysis Refused 206.925932641824 BP Diastolic BP Location Tested BP Systolic BP Type 67 124 Fetus Heart Rate Present A 145 B 138 Present Fetus Movement A Yes B Yes Comments Patient is having pelvic clarissa n, discharge, nausea and vomiting. doing well 37 week c/s at [facility] scheduled 07/18 +FM x2 precautions and education discuss rsv at next visit f/u 2 weeks Flowsheet Date 06/05/2024 Han Score Blood Edema Fundus Height Fundus Units Glucose Ketones Leukocytes Nitrite Labor Signs Protein Cervic Dilation Cervic Effacement Cervic Station none Type Weight in lbs Pre/Post Dialysis Refused 206.599919385811 BP Diastolic BP Location Tested BP Systolic BP Type 97 140 88 138 Fetus Heart Rate Present A 147 B 156 Fetus Movement A Yes B Yes Comments doing well +FM, discussed c/ s vs vaginal, baby b breech, will discuss with [facility] education and precautions Flowsheet Date 06/19/2024 Han Score Blood Edema Fundus Height Fundus Units Glucose Ketones Leukocytes Nitrite Labor Signs Protein Cervic Dilation Cervic Effacement Cervic Station Type Weight in lbs Pre/Post Dialysis Refused Weight 210.840422706728 BP Diastolic BP Location Tested BP Systolic BP Type 80 128 Fetus Heart Rate Present A 146 B 150 Fetus Movement A Yes B Yes Comments Patient states that is havin g pressure and nausea. +FM NST yesterday at [facility] precautions and education f/u 2 weeks Flowsheet Date 07/03/2024 Han Score Blood Edema Fundus Height Fundus Units Glucose Ketones Leukocytes Nitrite Labor Signs Protein Cervic Dilation Cervic Effacement Cervic Station Type Weight in lbs Pre/Post Dialysis Refused Weight 209.090511758766 BP Diastolic BP Location Tested BP Systolic [...] At Estimated Date of Delivery false Thalassemia (Burkinan, British, Mediterranean, Or Background): MCV < 80 false Neural Tube Defect (Meningom yelocele, Spina Bifida, Or Anencephaly) false Congenital Heart Defect false Down Syndrome false Lincoln-Sachs (eg, Sikhism, Cajun, Vietnamese-Socorro) f alse Jonny Disease false Sickle Cell [...]
--- OUTSIDE RECORDS SUMMARY | 2024-07-18 11:49 | XMS_ITS | Patient Health Record ---
Author Organization 1 OF Eloy logan [facility] Address [address] [facility] [address] [place] [address] Care Team Providers Care Ct Technologist Name Role Phone UNKNOWN, UNKNOWN Primary Care Provider Unavailab Victorino Orozco Unavailable [phone] Reason For Referral No Information Plan Of Treatment No Information Insurance Providers Payer Name Payer Address Payer Phone Subscriber Number Group Number Insured Name Patient Relationship to Insured Coverage Start Date Coverage End Date [facility] Claims [address] [place] [address] [id number] Uzma Watson Self - patient is the insured
--- OUTSIDE RECORDS SUMMARY | 2024-07-18 11:49 | XMS_ITS | Continuity of Care Document ---
Author Organization [facility] Address [address] [place] [address] Assessment Encounter Date Assessment Date Assessment LastModified by Organization Details LastModified Time 06/05/2024 06/05/2024 Patient is _30__weeks . Discussed plan. Not available 06/05/2024 09:48:07 Plan of Treatment Reminders Order Date Submit [...] observ ation record ed. cammie Lindsay [address], [facility], [place], [address], 01/31/2024 12:59:11 02/01/20 24 02/01/2024 US, obste tric, follo w-up No observ ation record ed. [email or web address] [facility] [address] [place] [address] Krystyna [facility], [place], [address], 02/01/2024 16:12:06 02/01/20 24 02/01/2024 US, obste tric, follo w-up No observ ation record ed. [email or web address] Not Available 01/31 16:21:10 04/18/20 24 04/18/2024 US, obste tric, follo w-up No observ ation record ed. [facility] [address] [place], [address], 04/18/2024 13:46:37 04/18/20 24 04/18/2024 US, obste tric, follo w-up No observ ation record ed. [facility] [address] [place], [address], 04/18/2024 13:50:23 05/02/20 24 05/02/2024 US, obste tric, follo w-up No observ ation record ed. [email or web address] [facility] [address] [facility] [address], [place], [address], 05/02/2024 12:29:59 05/02/20 24 05/02/2024 US, obste tric, follo w-up No observ ation record ed. [email or web address] [facility] [address] [place], [address], 05/02/2024 15:11:09 05/16/20 24 05/16/2024 US, obste tric, follo w-up No observ ation record ed. [email or web address] [address] [place], [address], 05/17/2024 14:19:03 05/16/20 24 05/16/2024 US, obste tric, follo w-up No observ ation record ed. [email or web address] [facility] [address], [address], 05/16/2024 14:58:04 05/31/20 24 05/31/2024 US, obste tric, follo w-up No observ ation record ed. [email or web address] [facility] [address] [facility] [address], [place], [address], 05/31/2024 13:32:19 05/31/2005/31/2024 US, obste tric, follo w-up No observ ation record ed. [email or web address] [facility] [address] [place], [address], 06/05/2024 12:01:28 Result Notes None recorded. Problems Name Problem SNOMED Code Status Onset Date Resolution Date Notes Provider Name and Address Organization Details Recorded Time 67379273 Active 2023 Julianna sanchez, [facility] 4 10:18:05 Artificia l inseminat ion Active done by SP Hiwot Hendrix CNM [address], [place], [address], [facility] 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 4 15:14:03 Amelie thyroidit is 61277728 Active on levothyro xine for infertilt y Hiwot Hendrix CNM [address], [place], [address], [facility] 4 15:14:03 Anemia 606128303 Active Mayra sanchez, [facility] 4 10:34:46 Problem Notes None recorded. Procedures Surgical History Date Name Laterality Status Provider Name and Address Organization Details Recorded Time 2023 intrauterine artificial insemination completed Julianna Fay [facility] 11/15/2023 09:25:10 2023 hysterosalpingography completed Julianna Fay [facility] 01/31/2024 10:15:23 2022 Date of Last Pap Smear completed Julianna Fay [facility] 06/28/2023 09:35:11 2009 procedure on wrist completed Julianna Fay [facility] 03/29/2023 16:11:52 Imaging Results None [...] injectio n 11/14/2023 in right hip lot [id number] Exp 06/25/20 24 Not Available Not Available [...] Updated DateTime 4 157.48 cm 37.7 kg/m2 80776.0 2822 g 140 mm[Hg] 97 mm[Hg] 138 mm[Hg] 88 mm[Hg] Julianna Fay [facility] 4 09:30:12 Social History Question Answer Notes LastModified by Organizat ion Details LastModified Time Tobacco Smoking Status Never Smoker Suni sanchez [facility] 06/28/2023 09:26:18 What Is Your Level Of Alcohol Consumption? None [email or web address] Information not available 03/27/2024 If You Are , What Was Your Level Of Alcohol Consumption Prior To ? Occasional [email or web address] Information not available 03/27/2024 Are You Blind Or Do You Have Difficulty Seeing? No [email or web address] Information n ot available 03/29/2023 What Is Your Level Of Caffeine Consumption? Moderate [email or web address] Information not available 02/28/2024 In The 14 Days Before Symptom Onset, Have You Had Close Contact With A Laboratory-confirm ed COVID-19 While That Case Was Ill? No [email or web address] Information n ot available 03/29/2023 In The 14 Days Before Symptom Onset, Have You Had Close Contact With A Person Who Is Under Investigation For COVID-19 While That Person Was Ill? No Information not available 03/29/2023 Have You Been To An Area Known To Be High Risk For COVID-19? No [email or web address] Information not available 03/29/2023 Are You Deaf Or Do You Have Serious Difficulty Hearing? No [email or web address] Information not available 03/29/2023 What Type Of Diet Are You Following? REGULAR [email or web address] Information n ot available 03/29/2023 What Is The Highest Grade Or Level Of School You Have Completed Or The Highest Degree You Have Received? 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 No [email or web address] Information not available 02/28/2024 Have You Ever Been Counseled For Unhealthy Alcohol Use? No [email or web address] Information not available 06/28/2023 Do You Use Protection During Sex? No [email or web address] Information not available 01/05/2024 Do You Use Your Seat Belt Or Car Seat Routinely? Yes [email or web address] Information not available 03/29/2023 Do You Have Smoke And Carbon Monoxide Detectors In Your Home? Yes [email or web address] Information not available 03/29/2023 Do You Feel Stressed (tense, Restless, Nervous, Or Anxious, Or Unable To Sleep At Night)? [id number] [email or web address] Information not available 03/29/2023 Do You Use Any Illicit Or Recreational Drugs? No [email or web address] Information not available 03/29/2023 Do You Use Sunscreen Routinely? Yes [email or web address] Information not available 03/29/2023 Has Tobacco Cessation Counseling Been Provided? No Information not available 06/28/2023 Have You Used IV Drugs? No Information not available 02/28/2024 Do You Or Have You Ever Used Any Other Forms Of Tobacco Or Nicotine? No [email or web address] Information not available 06/28/2023 Sex: Unknown Functional Status Question Answer Note LastModified by Organizat ion Details LastModified Time Do you have difficulty walking or climbing stairs? No [email or web address] Information not available 06/28/2023 Are you able to walk? [email or web address] Information not available 03/29/2023 Are you able to care for yourself? Yes [email or web address] Information not available 06/28/2023 Do you have difficulty dressing or bathing? No [email or web address] Information not available 06/28/2023 What is your exercise level? Occasional [email or web address] Information not available 03/29/2023 Mental Status None recorded. Family History Relationship Description Onset Age of this Age Resolved Age Notes LastModified by Organization Details LastModified Time Mother Asthma [email or web address] Not available 05/03/2023 11:35:16 Maternal Grandmother Diabetes mellitus [email or web address] Not available 05/03 11:35:16 Medical History Condition [...] Diagnosis/Indication Diagnosis SNOMED-CT Code Diagnosis ICD10 Code 759607 Hiwot Hendrix [facility] [address],[facility] [address] 05/22/2024 09:29:03 05/22/2024 10:37:30 Routine care 767036982 Z34.92 [id number] [facility] [address],[facility] [address] 06/05/2024 09:18:38 06/05/2024 09:48:56 Routine care 923422378 Z34.92 Health Concerns Section Related Observation LastModified by Organization Detai ls LastModified Time None Recorded Concern Status LastModified by Organization Details LastModified Time None Recorded Payers Encounter Date Sequence Insurance Name Policy Number Policy Dale Covered Member ID Dale Member ID Guarantor Name 06/05/2024 1 [employer] - DOS PRIOR TO 2024 - [employer] - [employer] ( - PPO) Jin Watson [id number] Uzma Watson OBGyn Episode Ob Episode Information Episode Created Date Number of Fetuses Patient Bloodtype Patient rh Status Prepregnancy Weight lbs Domestic Partner Domestic Partner Phone Father Name Portrait Studio Photographer Status 01/31/20 24 2 O Positive 186 Jin woodard OPEN Fetus Data First Name Last Name Admitted to NICU Weight (g) Sex Living Outcome Pediatric Complications Fetus ID Race Codes Race Delivery Type [id number] Problems Problem Notes Pt has f/u ultrasounds with Gabriela RICHARDSON on 02/22, 03/07, 03/20, 03/27. TTS BILL cox US 05/31 , 06/14 & 06/27 NST 06/18, 06/21 & [email or web address] completed 1hr gtt failed, 3hr gtt passed. Problem Name Start Date End Date Resolution Snomed Code Not e Anemia [id number] Amelie thyroiditis 63175376 on levothyroxine for infertilty Artificial insemination 97842977 done by SP Monochorionic diamniotic twin 365587243 MFM on 01/31 Jas Calculation JAS Calculation [...] Weight in lbs Pre/Post Dialysis Refused Weight 186.968871441601 BP Diastolic BP Location Tested BP Systolic [...] Weight in lbs Pre/Post Dialysis Refused Weight 191.295926732720 BP Diastolic BP Location Tested BP Systolic [...] Type Weight in lbs Pre/Post Dialysis Refused 193.14110526905 BP Diastolic BP Location Tested BP Systolic BP Type 72 110 Fetus Heart Rate Present A 138 Present B 150 Present Fetus Movement A No Comments doing well +FM, discussed ta leave when she starts feeling poorly, sees mfm every 2 weeks currently. if needs would like to have it at [facility] because of proximity to NICU, would still like to co-manage care for now, f/u 4 weeks then 28 weeks GCT,. precautions and education, gerd resolved with protonix Flowsheet Date 04/24/2024 Han Score Blood Edema Fundus Height Fundus Units Glucose Ketones Leukocytes Nitrite Labor Signs Protein Cervic Dilation Cervic Effacement Cervic Station trace Type Weight in lbs Pre/Post Dialysis Refused 201.660394777896 BP Diastolic BP Location Tested BP Systolic BP Type 75 137 Fetus Heart Rate Present Fetus Movement A Yes B Yes Comments Patient states that is havin g some back pain, hip pain, swelling and nausea. ok for disability placard, ok for maternity belt, planning c/s at [facility] at 37 weeeks, plan 4 week GCT here, education and precautions. +FM x 2 Flowsheet Date 05/22/2024 Han Score Blood Edema Fundus Height Fundus Units Glucose Ketones Leukocytes Nitrite Labor Signs Protein Cervic Dilation Cervic Effacement Cervic Station none Type Weight in lbs Pre/Post Dialysis Refused 206.085334744862 BP Diastolic BP Location Tested BP Systolic BP Type 67 124 Fetus Heart Rate Present A 145 B 138 Present Fetus Movement A Yes B Yes Comments Patient is having pelvic clarissa n, discharge, nausea and vomiting. doing well 37 week c/s at [facility] scheduled 07/18 +FM x2 precautions and education discuss rsv at next visit f/u 2 weeks Flowsheet Date 06/05/2024 Han Score Blood Edema Fundus Height Fundus Units Glucose Ketones Leukocytes Nitrite Labor Signs Protein Cervic Dilation Cervic Effacement Cervic Station none Type Weight in lbs Pre/Post Dialysis Refused 206.543487945869 BP Diastolic BP Location Tested BP Systolic BP Type 97 140 88 138 Fetus Heart Rate Present A 147 B 156 Fetus Movement A Yes B Yes Comments doing well +FM, discussed c/ s vs vaginal, baby b breech, will discuss with [facility] education and precautions Flowsheet Date 06/19/2024 Han Score Blood Edema Fundus Height Fundus Units Glucose Ketones Leukocytes Nitrite Labor Signs Protein Cervic Dilation Cervic Effacement Cervic Station Type Weight in lbs Pre/Post Dialysis Refused Weight 210.451069741070 BP Diastolic BP Location Tested BP Systolic BP Type 80 128 Fetus Heart Rate Present A 146 B 150 Fetus Movement A Yes B Yes Comments Patient states that is havin g pressure and nausea. +FM NST yesterday at [facility] precautions and education f/u 2 weeks Flowsheet Date 07/03/2024 Han Score Blood Edema Fundus Height Fundus Units Glucose Ketones Leukocytes Nitrite Labor Signs Protein Cervic Dilation Cervic Effacement Cervic Station Type Weight in lbs Pre/Post Dialysis Refused Weight 209.607600895504 BP Diastolic BP Location Tested BP Systolic [...] At Estimated Date of Delivery false Thalassemia (Bengali, Italian, Mediterranean, Or Background): MCV < 80 false Neural Tube Defect (Meningom yelocele, Spina Bifida, Or Anencephaly) false Congenital Heart Defect false Down Syndrome false Lincoln-Sachs (eg, Hoahaoism, Cajun, Maltese-Schleicher) f alse Jonny Disease false Sickle Cell Disease Or Trait () false Hemophilia Or Other Blood Disorders false Muscular Dystrophy false Cystic Fibrosis false Dale's Chorea false Intellectual Disability/Autism false If Yes, [...]
--- OUTSIDE RECORDS SUMMARY | 2024-07-18 11:49 | XMS_ITS | Continuity of Care Document ---
Author Organization [facility] Address [address] [place] [address] Assessment Encounter Date Assessment Date Assessment LastModified by Organization Details LastModified Time 06/19/2024 06/19/2024 Patient is _32__weeks . Discussed plan. Not available 06/19/2024 10:33:22 Plan of Treatment Reminders Order Date Submit [...] observ ation record ed. cammie Lindsay [address], [facility], [place], [address], 01/31/2024 12:59:11 02/01/20 24 02/01/2024 US, obste tric, follo w-up No observ ation record ed. [email or web address] [facility] Counselor [address] [place] [address] Krystyna [facility], [place], [address], 02/01/2024 16:12:06 02/01/20 24 02/01/2024 US, obste tric, follo w-up No observ ation record ed. [email or web address] Not Available 01/31 16:21:10 04/18/20 24 04/18/2024 US, obste tric, follo w-up No observ ation record ed. [facility] [address] [place], [address], 04/18/2024 13:46:37 04/18/20 24 04/18/2024 US, obste tric, follo w-up No observ ation record ed. [facility] [address] [place], [address], 04/18/2024 13:50:23 05/02/20 24 05/02/2024 US, obste tric, follo w-up No observ ation record ed. [email or web address] [facility] [address] [facility] [address], [place], [address], 05/02/2024 12:29:59 05/02/20 24 05/02/2024 US, obste tric, follo w-up No observ ation record ed. [email or web address] [facility] [address] [place], [address], 05/02/2024 15:11:09 05/16/20 24 05/16/2024 US, obste tric, follo w-up No observ ation record ed. [email or web address] [place], [address], 05/17/2024 14:19:03 05/16/20 24 05/16/2024 US, obste tric, follo w-up No observ ation record ed. [email or web address] [facility] Genetic Counselor [address], [address], 05/16/2024 14:58:04 05/31/20 24 05/31/2024 US, obste tric, follo w-up No observ ation record ed. [email or web address] [facility] [address] [facility] [address], [place], [address], 05/31/2024 13:32:19 05/31/2005/31/2024 US, obste tric, follo w-up No observ ation record ed. [email or web address] [facility] [address] [place], [address], 06/05/2024 12:01:28 Result Notes None recorded. Problems Name Problem SNOMED Code Status Onset Date Resolution Date Notes Provider Name and Address Organization Details Recorded Time 89202271 Active 2023 Julianna sanchez, [facility] 4 10:18:05 Artificia l inseminat ion Active done by SP Hiwot Hendrix CNM [address], [place], [address], [facility] 4 15:14:03 Monochori onic diamnioti c twin 002372616 Active MFM on 01/31 Hiwot Hendrix CNM [address], [place], [address], [facility] 4 15:14:03 Amelie thyroidit is 82055052 Active on levothyro xine for infertilt y Hiwot Hendrix CNM [address], [place], [address], [facility] 4 15:14:03 Anemia 132402326 Active Mayra sanchez, [facility] 4 10:34:46 Problem Notes None recorded. Procedures Surgical History Date Name Laterality Status Provider Name and Address Organization Details Recorded Time 2023 intrauterine artificial insemination completed Julianna Fay [facility] 11/15/2023 09:25:10 2023 hysterosalpingography completed Julianna Fay [facility] 01/31/2024 10:15:23 2022 Date of Last Pap Smear completed Julianna Fay [facility] 06/28/2023 09:35:11 2009 procedure on wrist completed Julianna Fay [facility] 03/29/2023 16:11:52 Imaging Results None [...] injectio n 11/14/2023 in right hip lot [id number] Exp 06/25/20 24 Not Available Not Available [...] Updated DateTime 06/19/2024 157.48 cm 38.4 kg/m2 64413.4 g 128 mm[Hg] 80 mm[Hg] Julianna Fay [facility] 10:04:11 Social History Question Answer Notes LastModified by Organizat ion Details LastModified Time Tobacco Smoking Status Never Smoker Suni sanchez, [facility] 06/28/2023 09:26:18 What Is Your Level Of Alcohol Consumption? None [email or web address] Information not available 03/27/2024 If You Are , What Was Your Level Of Alcohol Consumption Prior To ? Occasional [email or web address] Information not available 03/27/2024 Are You Blind Or Do You Have Difficulty Seeing? No Information n ot available 03/29/2023 What Is Your Level Of Caffeine Consumption? Moderate [email or web address] Information not available 02/28/2024 In The 14 Days Before Symptom Onset, Have You Had Close Contact With A Laboratory-confirm ed COVID-19 While That Case Was Ill? No [email or web address] Information n ot available 03/29/2023 In The 14 Days Before Symptom Onset, Have You Had Close Contact With A Person Who Is Under Investigation For COVID-19 While That Person Was Ill? No [email or web address] Information not available 03/29/2023 Have You Been To An Area Known To Be High Risk For COVID-19? No [email or web address] Information not available 03/29/2023 Are You Deaf Or Do You Have Serious Difficulty Hearing? No [email or web address] Information not available 03/29/2023 What Type Of Diet Are You Following? REGULAR [email or web address] Information n ot available 03/29/2023 What Is The Highest Grade Or Level Of School You Have Completed Or The Highest Degree You Have Received? 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 No [email or web address] Information not available 02/28/2024 Have You Ever Been Counseled For Unhealthy Alcohol Use? No [email or web address] Information not available 06/28/2023 Do You Use Protection During Sex? No [email or web address] Information not available 01/05/2024 Do You Use Your Seat Belt Or Car Seat Routinely? Yes [email or web address] Information not available 03/29/2023 Do You Have Smoke And Carbon Monoxide Detectors In Your Home? Yes [email or web address] Information not available 03/29/2023 Do You Feel Stressed (tense, Restless, Nervous, Or Anxious, Or Unable To Sleep At Night)? [id number] [email or web address] Information not available 03/29/2023 Do You Use Any Illicit Or Recreational Drugs? No [email or web address] Information not available 03/29/2023 Do You Use Sunscreen Routinely? Yes [email or web address] Information not available 03/29/2023 Has Tobacco Cessation Counseling Been Provided? No [email or web address] Information not available 06/28/2023 Have You Used IV Drugs? No [email or web address] Information not available 02/28/2024 Do You Or Have You Ever Used Any Other Forms Of Tobacco Or Nicotine? No [email or web address] Information not available 06/28/2023 Sex: Unknown Functional Status Question Answer Note LastModified by Organizat ion Details LastModified Time Do you have difficulty walking or climbing stairs? No [email or web address] Information not available 06/28/2023 Are you able to walk? YESWOREST [email or web address] Information not available 03/29/2023 Are you able to care for yourself? Yes [email or web address] Information not available 06/28/2023 Do you have difficulty dressing or bathing? No [email or web address] Information not available 06/28/2023 What is your exercise level? Occasional [email or web address] Information not available 03/29/2023 Mental Status None recorded. Family History Relationship Description Onset Age of this Age Resolved Age Notes LastModified by Organization Details LastModified Time Mother Asthma [email or web address] Not available 05/03/2023 11:35:16 Maternal Grandmother Diabetes mellitus [email or web address] Not available 05/03 11:35:16 Medical History Condition [...] Diagnosis/Indication Diagnosis SNOMED-CT Code Diagnosis ICD10 Code [id number] Hiwot Hendrix [facility] [address],[place] [address] 05/22/2024 09:29:03 05/22/2024 10:37:30 Routine care 946894516 Z34.92 [id number] Hiwot Hendrix [facility] [address],[place] [address] 06/05/2024 09:18:38 06/05/2024 09:48:56 Routine care 256936641 Z34.92 [id number] Hiwot Hendrix [facility] [address],[place] [address] 06/19/2024 09:40:08 06/19/2024 10:39:08 Gestation period, 32 weeks 2315706 Z3A.32 Health Concerns Section Related Observation LastModified by Organization Detai ls LastModified Time None Recorded Concern Status LastModified by Organization Details LastModified Time None Recorded Payers Encounter Date Sequence Insurance Name Policy Number Policy Dale Covered Member ID Dale Member ID Guarantor Name 06/19/2024 1 [facility] - DOS PRIOR TO 2024 - [employer] - SELECT ( - PPO) Jin Watson [id number] Uzma Watson OBGyn Episode Ob Episode Information Episode Created Date Number of Fetuses Patient Bloodtype Patient rh Status Prepregnancy Weight lbs Domestic Partner Domestic Partner Phone Father Name Lining Vamper Status 01/31/20 24 2 O Positive 186 Jin woodard OPEN Fetus Data First Name Last Name Admitted to NICU Weight (g) Sex Living Outcome Pediatric Complications Fetus ID Race Codes Race Delivery Type [id number] Problems Problem Notes Pt has f/u ultrasounds with Gabriela RICHARDSON on 02/22, 03/07, 03/20, 03/27. TTS BILL cox US 05/31 , 06/14 & 06/27 NST 06/18, 06/21 & covidSpecialist completed 1hr gtt failed, 3hr gtt passed. Problem Name Start Date End Date Resolution Snomed Code Not e Anemia 885395100 Amelie thyroiditis 58314326 on levothyroxine for infertilty Artificial insemination 95344352 done by SP Monochorionic diamniotic twin 285347956 MFM on 01/31 Jas Calculation JAS Calculation [...] Sound Latest Days Gestation 01/31/20 24 12 [email or web address] 01/31/2024 08/08/19 25 6 Pre- Flowsheet Flowsheet Date 01/31/2024 Han Score Blood Edema Fundus Height Fundus Units Glucose Ketones Leukocytes Nitrite Labor Signs Protein Cervic Dilation Cervic Effacement Cervic Station none Type Weight in lbs Pre/Post Dialysis Refused Weight 186.664616508274 BP Diastolic BP Location Tested BP Systolic [...] Weight in lbs Pre/Post Dialysis Refused Weight 191.901347694279 BP Diastolic BP Location Tested BP Systolic [...] Type Weight in lbs Pre/Post Dialysis Refused 193.13800141832 BP Diastolic BP Location Tested BP Systolic BP Type 72 110 Fetus Heart Rate Present A 138 Present B 150 Present Fetus Movement A No Comments doing well +FM, discussed ta leave when she starts feeling poorly, sees mfm every 2 weeks currently. if needs would like to have it at [facility] because of proximity to NICU, would still like to co-manage care for now, f/u 4 weeks then 28 weeks GCT,. precautions and education, gerd resolved with protonix Flowsheet Date 04/24/2024 Han Score Blood Edema Fundus Height Fundus Units Glucose Ketones Leukocytes Nitrite Labor Signs Protein Cervic Dilation Cervic Effacement Cervic Station trace Type Weight in lbs Pre/Post Dialysis Refused 201.925193829380 BP Diastolic BP Location Tested BP Systolic BP Type 75 137 Fetus Heart Rate Present Fetus Movement A Yes B Yes Comments Patient states that is havin g some back pain, hip pain, swelling and nausea. ok for disability placard, ok for maternity belt, planning c/s at [facility] at 37 weeeks, plan 4 week GCT here, education and precautions. +FM x 2 Flowsheet Date 05/22/2024 Han Score Blood Edema Fundus Height Fundus Units Glucose Ketones Leukocytes Nitrite Labor Signs Protein Cervic Dilation Cervic Effacement Cervic Station none Type Weight in lbs Pre/Post Dialysis Refused 206.344882010287 BP Diastolic BP Location Tested BP Systolic BP Type 67 124 Fetus Heart Rate Present A 145 B 138 Present Fetus Movement A Yes B Yes Comments Patient is having pelvic clarissa n, discharge, nausea and vomiting. doing well 37 week c/s at [facility] scheduled 07/18 +FM x2 precautions and education discuss rsv at next visit f/u 2 weeks Flowsheet Date 06/05/2024 Han Score Blood Edema Fundus Height Fundus Units Glucose Ketones Leukocytes Nitrite Labor Signs Protein Cervic Dilation Cervic Effacement Cervic Station none Type Weight in lbs Pre/Post Dialysis Refused 206.308498482531 BP Diastolic BP Location Tested BP Systolic BP Type 97 140 88 138 Fetus Heart Rate Present A 147 B 156 Fetus Movement A Yes B Yes Comments doing well +FM, discussed c/ s vs vaginal, baby b breech, will discuss with [facility] education and precautions Flowsheet Date 06/19/2024 Han Score Blood Edema Fundus Height Fundus Units Glucose Ketones Leukocytes Nitrite Labor Signs Protein Cervic Dilation Cervic Effacement Cervic Station Type Weight in lbs Pre/Post Dialysis Refused Weight 210.410730587205 BP Diastolic BP Location Tested BP Systolic BP Type 80 128 Fetus Heart Rate Present A 146 B 150 Fetus Movement A Yes B Yes Comments Patient states that is havin g pressure and nausea. +FM NST yesterday at [facility] precautions and education f/u 2 weeks Flowsheet Date 07/03/2024 Han Score Blood Edema Fundus Height Fundus Units Glucose Ketones Leukocytes Nitrite Labor Signs Protein Cervic Dilation Cervic Effacement Cervic Station Type Weight in lbs Pre/Post Dialysis Refused Weight 209.266293571921 BP Diastolic BP Location Tested BP Systolic [...] At Estimated Date of Delivery false Thalassemia (Malagasy, Iraqi, Mediterranean, Or Background): MCV < 80 false Neural Tube Defect (Meningom yelocele, Spina Bifida, Or Anencephaly) false Congenital Heart Defect false Down Syndrome false Lincoln-Sachs (eg, Mormonism, Cajun, Korean-[place]) f alse Jonny Disease false Sickle Cell [...]
--- NOTE | 2024-07-18 11:51 | ED_ITS ---
HPI - General Adult General Chief complaint: Skin/Abscess/Foreign Body Stated complaint: Skin/Abscess/Foreign Body Time Seen by Provider: 07/18/24 11:54 Source: patient, RN notes reviewed and old records reviewed Mode of arrival: ambulatory Limitations: no limitations History of Present Illness HPI narrative: 29-year-old female presents to the [facility] with concerns for a left breast infection. Patient states she gave 1 week ago. 2-3 days ago started with some redness, reports purulent drainage, yellow in color. Denies pain. Area is red, no swelling noted. Mildly increased warmth. Related Data Home Medications ?Medication ?Instructions ?Recorded ?Confirmed ?Last Taken ?Type acetaminophen 500 mg tablet 500 mg PO ONCE 07/18/24 Unknown History gabapentin 300 mg capsule mg 07/18/24 Unknown History ibuprofen 600 mg tablet mg 07/18/24 Unknown History oxycodone 5 mg tablet mg 07/18/24 Unknown History Allergies Allergy/AdvReac Type Severity Reaction Status Date / Time No Known Allergies Allergy Verified 07/18/24 11:56 Review of Systems 2 Review of Systems: All systems reviewed & are unremarkable except as noted in HPI and below Constitutional: Constitutional: Reports no additional constitutional complaints ENT: Reports system reviewed and no additional complaints, except as documented Cardiovascular: Cardiovascular: Reports no additional cardiovascular complaints, Denies chest pain and Denies dyspnea Respiratory: Respiratory: Reports no additional respiratory complaints, Denies chest congestion, Denies cough and Denies dyspnea Gastrointestinal: Gastrointestinal: Reports no additional gastrointestinal complaints, Denies abdominal pain, Denies nausea and Denies vomiting Musculoskeletal: Musculoskeletal: Reports no additional musculoskeletal complaints Integumentary/Breasts: Skin/Breast: Reports as per HPI [facility] Past Medical History Medical History Ganglion cyst of dorsum of left wrist Surgical History Surgical History History of removal of cyst Family History Family History Mother Family history non-contributory Social History Social History Smoking status: Never smoker Alcohol intake: current Alcohol use details: occasionally Substance use: never Living arrangements: with family Gender identity (if verbalized by the patient): Female Comments At the time of my signature, I reviewed and agree with the nursing past medical, surgical, social, and family history. There is no relevant family history pertinent to the patient complaint. Exam 2 Const: General: cooperative, healthy appearing, comfortable, no acute distress, well developed, alert and well nourished Nutritional Appearance: w ell nourished Orientation/consciousness: patient oriented x3 Limitations: no limitations HENMT: Head: normal to inspection Face/Nose/Sinus: normal facial exam and face symmetric Face and sinus: normal facial exam and face symmetric Eyes: General: appearance normal, both eyes and all related structures Neck: Neck: normal visual inspection and full ROM Chest: Chest palpation & inspection: normal inspection of the chest Resp: Effort & Inspection: normal respiratory effort and able to speak in complete sentences Cardio: Rate: regular rate Skin: General skin exam: normal color and no rashes or lesions noted L esions: no lesions Rashes: no rashes Wounds: no wounds Full body images: 1. small area apx 2x2 cm increased redness and warmth without fluctuance or swelling. Neuro: General: patient oriented x3, gait normal, tone normal, moves all extremities and no meningeal signs Cognition (Neuro): normal cognition S peech: normal speech Gait exam (Neuro): Normal gait present Extrem: General: normal to inspection, full ROM, capillary refill normal and normal gait Psych: Appearance: grossly normal and well kempt Mental Status: mental status grossly normal Speech and movement: Normal speech and movement present and Clear speech present Affect: normal affect Attitude: cooperative Course Course Level of Care: Express Care Visit Vital Signs Vital signs: Vital Signs Temperature 97.6 F 07/18/24 11:55 Pulse Rate 76 07/18/24 11:55 Respiratory Rate 18 07/18/24 11:55 Blood Pressure 139/78 07/18/24 11:55 Pulse Oximetry 100 07/18/24 11:55 Oxygen Delivery Room Air 07/18/24 11:55 Temperature 97.6 F 07/18/24 11:55 Pulse Rate 76 07/18/24 11:55 Respiratory Rate 18 07/18/24 11:55 Blood Pressure 139/78 07/18/24 11:55 Pulse Oximetry 100 07/18/24 11:55 Oxygen Delivery Room Air 07/18/24 11:55 Reviewed Medical Decision Making MDM Narrative Medical decision making narrative: Patient sitting comfortably in exam room. Nontoxic, vitals stable. Patient in no acute distress Patient presents for redness to the left breast. Patient is reporting purulent drainage Will place on antibiotics with close follow-up with primary care or floriculturist. Mild redness without tenderness, does have increased warmth, no swelling. Patient appropriate for outpatient treatment and follow-up Discharge instructions reviewed with patient, as well as provided in writing per nursing staff. The instructions also include specific and strict return/GO TO THE ER as well as f/u information. All questions have been answered, and the patient deny any further questions with discharge and discharge plan. Some parts of this dictation were generated by voice recognition software and may contain typographical and/or grammatical inaccuracies. Differential Diagnosis Differential Diagnosis: Cellulitis, mastitis Medical Records Medical records reviewed: Yes I reviewed the external patient's medical records. Vital Signs Vital Signs: Vital Signs Temperature 97.6 F 07/18/24 11:55 Pulse Rate 76 07/18/24 11:55 Respiratory Rate 18 07/18/24 11:55 Blood Pressure 139/78 07/18/24 11:55 Pulse Oximetry 100 07/18/24 11:55 Oxygen Delivery Room Air 07/18/24 11:55 Temperature 97.6 F 07/18/24 11:55 Pulse Rate 76 07/18/24 11:55 Respiratory Rate 18 07/18/24 11:55 Blood Pressure 139/78 07/18/24 11:55 Pulse Oximetry 100 07/18/24 11:55 Oxygen Delivery Room Air 07/18/24 11:55 Reviewed Lab Data Lab results reviewed: Yes I reviewed the patient's lab results. Labs: Reviewed Critical Care Time Critical Care Time Critical Care Time: No Discharge Plan Discharge Clinical Impression: Cellulitis Qualifiers: Site of cellulitis: other site Qualified Code(s): L03.818 - Cellulitis of other sites Patient Disposition: Home, Self-Care Condition: Stable Instructions: Antibiotic Form, Mastitis (ED) Additional Instructions: Keep area clean and dry. Just rinsed with warm water, pat dry. Follow-up with your truck sales representative Continue to nurse or pump the breast milk For worsening symptoms go directly to the emergency Patient Language: Nicaraguan Prescriptions: New cephalexin 500 mg capsule 500 mg PO QID 7 Days Qty: 28 0RF No Action gabapentin 300 mg capsule oxycodone 5 mg tablet ibuprofen 600 mg tablet acetaminophen 500 mg tablet 500 mg PO ONCE Follow-up/Referrals: Florencio Mathur MD [Physician] - PHYSICIAN,AD CLERK [Primary Care Provider] - Hiwot Hendrix CNM [Certified Nurse Fast Food Crew Lead] - 3 Days Time of Disposition: 12:11
--- OUTSIDE RECORDS SUMMARY | 2024-07-18 11:51 | XMS_ITS | Continuity of Care Document ---
Author Name [facility] Organization [facility] Care Team Providers Care Cognos Administrator Name Role Phone [facility] Unavailable Unavailable Medications Combined list of outpatient medications from Department of Defense and Veterans Affairs facilities.Medications provided include 1) outpatient medications from the last 15 months, and 2) patient-reported medications. Medication Details Route Status Patient Instructions Prescription Expires Prescription Number Last Dispense Date Ordering Provider Order Date Order Qty Source LETROZOLE (LETROZOLE) , 2.5 MG, TABLET, ORAL, [facility], 30 ea. BOTTLE Active [id number] 2023 15 Pharmac y Data Transac tion Service Facilit y LETROZOLE (LETROZOLE) , 2.5 MG, TABLET, ORAL, [facility], 30 ea. BOTTLE Active [id number] 2023 10 Pharmac y Data Transac tion Service Facilit y LETROZOLE (LETROZOLE) , 2.5 MG, TABLET, ORAL, BRECKENRIDG E, 30 ea. BOTTLE Cancele d [id number] : 2023 0 Pharmac y Data Transac tion Service Facilit y LETROZOLE (LETROZOLE) , 2.5 MG, TABLET, ORAL, BRECKENRIDG E, 30 ea. BOTTLE Active [id number] 2023 15 Pharmac y Data Transac tion Service Facilit y LETROZOLE (LETROZOLE) , 2.5 MG, TABLET, ORAL, BRECKENRIDG E, 30 ea. BOTTLE Active [id number] 2023 15 Pharmac y Data Transac tion Service Facilit y LEVOTHYROXI NE SODIUM (levothyrox ine sodium), 50 MCG, TABLET, ORAL, [facility], 1000 ea. BOTTLE Active [id number] 2023 90 Pharmac y Data Transac tion Service Facilit y LEVOTHYROXI NE SODIUM (levothyrox ine sodium), 50 MCG, TABLET, ORAL, [facility] [facility]ARM[facility], 1000 ea. BOTTLE Active [id number] 2023 90 Pharmac y Data Transac tion Service Facilit y LEVOTHYROXI NE SODIUM (levothyrox ine sodium), 50 MCG, TABLET, ORAL, [facility]AL [facility]ARM[facility], 1000 ea. BOTTLE Active [id number] 2023 90 Pharmac y Data Transac tion Service Facilit y METHYLPREDN ISOLONE (methylpred nisolone), 4 MG, TAB DS PK, ORAL, [employer], 21 ea. DOSE-PACK Active [id number] 2023 21 Pharmac y Data Transac tion Service Facilit y NITROFURANT OIN MONO-MACRO (NITROFURAN TOIN MONOHYD/M-C RYST), 100 MG, CAPSULE, ORAL, [employer], 100 ea. BOTTLE Active [id number] 2023 30 Pharmac y Data Transac tion Service Facilit y ONDANSETRON ODT (ONDANSETRO N), 4 MG, TAB RAPDIS, ORAL, [employer], 30 ea. BLIST PACK Active [id number] 2023 60 Pharmac y Data Transac tion Service Facilit y ONDANSETRON ODT (ONDANSETRO N), 4 MG, TAB RAPDIS, ORAL, [employer], 30 ea. BLIST PACK Active [id number] 2023 30 Pharmac y Data Transac tion Service Facilit y PREGNYL (chorionic gonadotropi n, human), 25513 UNIT, VIAL, [employer]TRAMUSC, [employer], 1 ea. VIAL Active [id number] 2023 1 Pharmac y Data Transac tion Service Facilit y PREGNYL (GONADOTROP IN,CHORIONI C,HUMAN), 53200 UNIT, VIAL, INTRAMUSC, [employer] 1 ea. VIAL Cancele d [id number] : 2023 0 Pharmac y Data Transac tion Service Facilit y Social History Combined list of available smoking, tobacco, and other social history from Department of Defense and Veterans Affairs facilities. Social History Type Response Date Comment Sourc e This section is an empty social history section. DoD
[2024-07-18 11:55] VITALS: BP 139/78; PULSE 76; RESP 18; TEMP 36.4; O2SAT 100
== END 2024-07-18 12:18 | disposition home or self-care (01) ==
PROVIDERS: Emergency Provider Nurse Practitioner
DX: O91.22 Nonpurulent mastitis associated with the puerperium (principal)
CPT/HCPCS: 99213; G0463